=== PATIENT | male | born 1950 | race Caucasian/White ===

== ENCOUNTER → 2024-02-02 | Outpatient (CLI) | payer MEDICARE ==
[2024-02-02 12:25] LABS: African American GFR (CKD) 43 (>60 ml/min/1.73 sqM); Blood Urea Nitrogen 48 mg/dL (9-20); Non-African American GFR(CKD) 37 (>60 ml/min/1.73 sqM)
--- NOTE | 2024-02-13 19:26 | CT ---
EXAMINATION TYPE: CT ChestAbdPelvis w con CT DLP: 1250 mGycm, Automated exposure control for dose reduction was used. DATE OF EXAM: 02/02/2024 1:51 PM COMPARISON: 12/05/2023 CLINICAL INDICATION:Male, 73 years old with history of C34.2 LUNG CANCER; PHH, Lung ca Technique: CT ChestAbdPelvis w con; Multiple axial images were obtained. Two-dimensional coronal and sagittal reconstructions were obtained. Contrast used:80 mL of Isovue 300 with IV Contrast, Oral contrast used: with Oral Contrast Findings: CHEST: LUNGS/ PLEURA: Scattered airspace opacities superimposed on centrilobular emphysema. There remains co nsolidation changes along the right major fissure not significantly changed possibly relating to post obstructive atelectasis versus underlying mass. Paraseptal emphysema changes are present. AIRWAY: Patent and unremarkable. HEART: Size within normal limits. Mild atherosclerosis of the coronary arteries. MEDIASTINUM: No gross evidence of adenopathy. VASCULATURE: No aortic aneurysm. MUSCULOSKELETAL: No acute osseous abnormalities. SOFT TISSUES/LYMPH NODES: Unremarkable. LOWER NECK: No significant findings. ABDOMEN: ABDOMEN LIVER: Unremarkable GALLBLADDER AND BILE DUCTS: Unremarkable. PANCREAS: Unremarkable. SPLEEN: Unremarkable. ADRENAL GLANDS: Unremarkable. KIDNEYS AND URETERS: No evidence of hydronephrosis or renal calculus. The ureters are unremarkable. PELVIS BLADDER: Unremarkable REPRODUCTIVE: Prostate is enlarged in size measuring 4.9 cm in transverse dimension. ABDOMEN & PELVIS STOMACH AND BOWEL: No evidence of bowel obstruction. PERITONEUM: No evidence of pneumoperitoneum or free fluid. VASCULATURE: No evidence of aortic aneurysm. MUSCULOSKELETAL: L3 vertebral body mass with 6 as a large soft tissue component and extends left late ral out of the vertebral body. This area measures at least 53 x 49 mm this is sitting immediately adj acent to or invading into the left psoas muscle. Soft tissue component slightly extending into the le ft neural foramen series 6 image 62. LYMPH NODES: No gross evidence for lymphadenopathy. SOFT TISSUE/ABDOMINAL WALL: Unremarkable IMPRESSION: 1. Enlarging left L3 vertebral body mass with a large soft tissue component which extends left later al out of the vertebral body. This area measures at least 53 x 49 mm this is sitting immediately la cent/invading into the left psoas muscle. Soft tissue extends into the left neural foramen. 2. Persistent scattered diffuse ground glass/airspace opacities. 3. Stable appearance of the right major fissure consolidation with underlying mass suggested. 4. No new or enlarging lymph nodes greater than 1.0 cm short axis suggest new lymphadenopathy.
== END | disposition home or self-care (01) ==
LOC: RADCTMAIN 11:37
PROVIDERS: ATTEND Internal Medicine Hematology & Oncology
DX: C79.51 Secondary malignant neoplasm of bone (principal); C34.2 Malignant neoplasm of middle lobe, bronchus or lung; G89.3 Neoplasm related pain (acute) (chronic); E78.5 Hyperlipidemia, unspecified
CPT/HCPCS: 82565; 84520; 71260; 74177; 36415; Q9967

== ENCOUNTER 2024-03-24 14:00 | Inpatient (IN) | payer MEDICARE ==
--- NOTE | 2024-03-24 14:19 | ED ---
SOB HPI - General Chief Complaint: Shortness of Breath Stated Complaint: low O2 Time Seen by Provider: 03/24/24 14:06 Source: patient, family, RN notes reviewed, old records reviewed Mode of arrival: wheelchair Limitations: no limitations - History of Present Illness Initial Comments: This is a 74-year-old male to the ER for evaluation of their severe hypoxia. Patient has known diagnosis of lung cancer on home O2 but oxygen has been significantly low for a day or so now and significantly worse today. No fevers no current changes in pain or chest pain no other complaints MD Complaint: shortness of breath, cough (Oxygen), anxiety -: days(s) Severity: severe Severity scale (1-10): 10 Consistency: constant Improves With: nothing Worsens With: nothing Known History Of: COPD, asthma - Related Data Home Medications Medication Instructions Recorded Confirmed Adagrasib [Krazati] 600 mg PO BID 03/24/24 03/24/24 Fluticasone/Umeclidin/Vilanter 1 puff INHALATION RT-DAILY 03/24/24 03/24/24 [Treledestini Ellipta 100-62.5-25] Folic Acid 1 mg PO DAILY 03/24/24 03/24/24 Gabapentin [Neurontin] 300 mg PO TID 03/24/24 03/24/24 Megestrol Acetate 625mg/5ml 625 mg PO DAILY 03/24/24 03/25/24 Suspension Metoclopramide [Reglan] 5 mg PO TID 03/24/24 03/24/24 Midodrine HCl [ProAmantine] 5 mg PO TID 03/24/24 03/24/24 Morphine Sulfate ER [Ms Contin] 30 mg PO Q12HR 03/24/24 03/24/24 Pantoprazole Sodium [Protonix] 40 mg PO DAILY 03/24/24 03/24/24 Sennosides [Senokot] 17.2 mg PO BID 03/24/24 03/24/24 Vit C/E/Zn/Coppr/Lutein/Zeaxan 1 cap PO DAILY 03/24/24 03/24/24 [Preservision Areds 2 Softgel] oxyCODONE HCL [OxyIR] 5 mg PO Q6H PRN 03/24/24 03/24/24 polyethylene glycoL 3350 [Miralax] 17 gm PO DAILY PRN 03/24/24 03/24/24 Previous Rx's Medication Instructions Recorded Acetaminophen Tab [Tylenol] 1,000 mg PO Q6HR PRN tab 03/27/24 Amoxic-Pot Clav 875-125Mg 1 tab PO Q12HR 5 Days #10 tab 03/27/24 [Augmentin 875-125] Budesonide-Formot 160-4.5 Mcg 2 puff INHALATION RT-BID each 03/27/24 [Symbicort 160-4.5 Mcg Inhaler] Folic Acid 1 mg PO DAILY tab 03/27/24 Ipratropium-Albuterol Nebulize 3 ml INHALATION RT-QID #120 each 03/27/24 [Duoneb 0.5 mg-3 mg/3 ml Soln] predniSONE 10 mg PO DIRECTED #90 tab 03/27/24 Allergies Allergy/AdvReac Type Severity Reaction Status Date / Time atorvastatin [From Lipitor] Allergy Rapid Verified 03/24/24 16:59 Heart Rate Review of Systems ROS Statement: Those systems with pertinent positive or pertinent negative responses have been documented in the HPI. ROS Other: All systems not noted in ROS Statement are negative. Past Medical History Past Medical History: Cancer Additional Past Medical History / Comment(s): lung ca Past Surgical History: No Surgical Hx Reported General Exam Limitations: no limitations General appearance: alert, in no apparent distress Head exam: Present: atraumatic, normocephalic, normal inspection Eye exam: Present: normal appearance, PERRL, EOMI. Absent: scleral icterus, conjunctival injection, periorbital swelling ENT exam: Present: normal exam, mucous membranes moist Neck exam: Present: normal inspection. Absent: tenderness, meningismus, lymphadenopathy Respiratory exam: Present: normal lung sounds bilaterally. Absent: respiratory distress, wheezes, rales, rhonchi, stridor Cardiovascular Exam: Present: regular rate, normal rhythm, normal heart sounds. Absent: systolic murmur, diastolic murmur, rubs, gallop, clicks GI/Abdominal exam: Present: soft, normal bowel sounds. Absent: distended, tenderness, guarding, rebound, rigid Extremities exam: Present: normal inspection, full ROM, normal capillary refill. Absent: tenderness, pedal edema, joint swelling, calf tenderness Back exam: Present: normal inspection Neurological exam: Present: alert, oriented X3, CN II-XII intact Psychiatric exam: Present: normal affect, normal mood Skin exam: Present: warm, dry, intact, normal color. Absent: rash Course Vital Signs 03/24/24 03/24/24 03/24/24 14:01 14:15 14:26 Temperature 97.6 F Pulse Rate 80 61 Pulse Rate [ Pulse Oximetery ] Respiratory 24 Rate Blood Pressure 102/49 105/68 Blood Pressure [Left Arm] O2 Sat by Pulse 75 L 77 L Oximetry 03/24/24 03/24/24 03/24/24 14:50 14:56 16:00 Temperature 97.8 F Pulse Rate 65 71 Pulse Rate [ Pulse Oximetery ] Respiratory 24 20 Rate Blood Pressure 116/65 Blood Pressure [Left Arm] O2 Sat by Pulse 91 L 89 L Oximetry 03/24/24 03/24/24 03/24/24 17:03 17:41 17:56 Temperature Pulse Rate 67 68 75 Pulse Rate [ Pulse Oximetery ] Respiratory 22 Rate Blood Pressure 106/63 Blood Pressure [Left Arm] O2 Sat by Pulse 89 L Oximetry 03/24/24 03/24/24 03/24/24 18:00 19:00 19:42 Temperature 98.2 F Pulse Rate 75 75 97 Pulse Rate [ Pulse Oximetery ] Respiratory 24 22 Rate Blood Pressure 93/53 114/60 Blood Pressure [Left Arm] O2 Sat by Pulse 93 L 95 94 L Oximetry 03/24/24 03/24/24 03/24/24 19:52 20:13 22:20 Temperature Pulse Rate 88 78 75 Pulse Rate [ Pulse Oximetery ] Respiratory 19 18 Rate Blood Pressure 104/51 121/79 Blood Pressure [Left Arm] O2 Sat by Pulse 97 92 L Oximetry 03/25/24 03/25/24 03/25/24 00:46 01:02 04:14 Temperature Pulse Rate 69 64 71 Pulse Rate [ Pulse Oximetery ] Respiratory Rate Blood Pressure Blood Pressure [Left Arm] O2 Sat by Pulse Oximetry 03/25/24 03/25/24 03/25/24 04:25 06:03 07:40 Temperature Pulse Rate 70 78 65 Pulse Rate [ Pulse Oximetery ] Respiratory 20 18 Rate Blood Pressure 121/67 120/63 Blood Pressure [Left Arm] O2 Sat by Pulse 92 L 90 L Oximetry 03/25/24 03/25/24 03/25/24 08:44 08:45 09:00 Temperature Pulse Rate 71 73 Pulse Rate [ Pulse Oximetery ] Respiratory 20 Rate Blood Pressure 117/81 Blood Pressure [Left Arm] O2 Sat by Pulse 90 L 89 L Oximetry 03/25/24 03/25/24 03/25/24 09:30 11:17 11:30 Temperature Pulse Rate 70 86 92 Pulse Rate [ Pulse Oximetery ] Respiratory 20 Rate Blood Pressure 140/68 Blood Pressure [Left Arm] O2 Sat by Pulse 90 L Oximetry 03/25/24 03/25/24 03/25/24 13:08 15:28 15:37 Temperature Pulse Rate 83 92 84 Pulse Rate [ Pulse Oximetery ] Respiratory 20 Rate Blood Pressure 130/66 Blood Pressure [Left Arm] O2 Sat by Pulse 94 L Oximetry 03/25/24 03/25/24 03/25/24 18:56 19:52 20:05 Temperature Pulse Rate 86 76 Pulse Rate [ 75 Pulse Oximetery ] Respiratory 20 20 18 Rate Blood Pressure 128/74 Blood Pressure 122/76 [Left Arm] O2 Sat by Pulse 94 L 90 L Oximetry 03/25/24 03/25/24 20:09 21:00 Temperature 98.2 F Pulse Rate 76 Pulse Rate [ 83 Pulse Oximetery ] Respiratory 18 18 Rate Blood Pressure Blood Pressure 116/61 [Left Arm] O2 Sat by Pulse 93 L 91 L Oximetry - Reevaluation(s) Reevaluation #1: 03/24/24 14:38 Medical records reviewed Reevaluation #2: 03/24/24 17:17 Showing symptomatic improvement with supplemental O2 and breathing treatments Reevaluation #3: 03/24/24 17:17 Patient informed of results questions answered Reevaluation #4: Was pt. sent in by a medical professional or institution (, PA, SENIOR TAX ACCOUNTANT, urgent care, hospital, or fpc...) When possible be specific @ -no Did you speak to anyone other than the patient for history (EMS, parent, family, police, friend...)? What history was obtained from this source @ -no Did you review nursing and triage notes (agree or disagree)? Why? @ -agree Are old charts reviewed (outside hosp., previous admission, EMS record, old EKG, old radiological studies, urgent care reports/EKG's, fpc records)? Report findings @ -yes Differential Diagnosis (chest pain, altered mental status, abdominal pain women, abdominal pain men, vaginal bleeding, weakness, fever, dyspnea, syncope, headache, dizziness, GI bleed, back pain, seizure, CVA, palpatations, mental health, musculoskeletal)? @ -prior EKG interpreted by me (3pts min.). @ -yes X-rays interpreted by me (1pt min.). @ -yes with significant edema and CHF CT interpreted by me (1pt min.). @ -yes with significant edema and CHF U/S interpreted by me (1pt. min.). @ -no What testing was considered but not performed or refused? (CT, X-rays, U/S, labs)? Why? @ -none What meds were considered but not given or refused? Why? @ -none Did you discuss the management of the patient with other professionals (professionals i.e. , PA, SENIOR TAX ACCOUNTANT, lab, RT, psych nurse, social worker masters, inspector timers, teacher, cra officer, case worker)? Give summary @ -no Was smoking cessation discussed for >3mins.? @ -no Was critical care preformed (if so, how long)? @ -yes31 Were there social determinants of health that impacted care today? How? (Homelessness, low income, unemployed, alcoholism, drug addiction, transportation, low edu. Level, literacy, decrease access to med. care, usp, rehab)? @ -none Was there de-escalation of care discussed even if they declined (Discuss DNR or withdrawal of care, Hospice)? DNR status @ -no What co-morbidities impacted this encounter? (DM, HTN, Smoking, COPD, CAD, Cancer, CVA, ARF, Chemo, Hep., AIDS, mental health diagnosis, sleep apnea, morbid obesity)? @ -none Was patient admitted / discharged? Hospital course, mention meds given and route, prescriptions, significant lab abnormalities, going to OR and other pertinent info. @ - 74 male will be admitted for severe hypoxia, improved with supplemental O2 Admitted Undiagnosed new problem with uncertain prognosis? @ -no Drug Therapy requiring intensive monitoring for toxicity (Heparin, Nitro, Insulin, Cardizem)? @ -no Were any procedures done? @ -no Diagnosis/symptom? @ -Respiratory failure and hypoxia with effusion Acute, or Chronic, or Acute on Chronic? @ -Acute Uncomplicated (without systemic symptoms) or Complicated (systemic symptoms)? @ -Complicated Side effects of treatment? @ -no Exacerbation, Progression, or Severe Exacerbation? @ -exacerbation Poses a threat to life or bodily function? How? (Chest pain, USA, DC, pneumonia, PE, COPD, DKA, ARF, appy, cholecystitis, CVA, Diverticulitis, Homicidal, Suicidal, threat to staff... and all critical care pts) @ -yes respiratory failure Reevaluation #5: Differential Dyspnea: Coronary syndrome, arrhythmia, tamponade, asthma, COPD, pulmonary embolism, pneumonia, pneumothorax, pulmonary effusion, anaphylaxis, diabetic ketoacidosis, flailed chest, pulmonary contusion, diaphragmatic rupture, anemia, neuromuscular, this is not meant to be an all-inclusive list. - Consultations Consultation #1: Speak with Dr. Sánchez before patient arrival regarding patient's hypoxia Consultation #2: Spoke with Dr. Herrera who is okay to admit this patient Medical Decision Making - Medical Decision Making 74 male will be admitted for severe hypoxia, improved with supplemental O2 - Lab Data Result diagrams: 03/25/24 06:33 03/27/24 06:52 Lab Results 03/24/24 03/24/24 03/24/24 Range/Units 14:18 14:18 14:18 WBC 10.6 (3.8-10.6) k/uL RBC 5.10 (4.30-5.90) m/uL Hgb 15.4 (13.0-17.5) gm/dL Hct 47.5 (39.0-53.0) % MCV 93.1 (80.0-100.0) fL MCH 30.2 (25.0-35.0) pg MCHC 32.4 (31.0-37.0) g/dL RDW 14.7 (11.5-15.5) % Plt Count 226 (150-450) k/uL MPV 7.6 Neutrophils % 79 % Lymphocytes % 8 % Monocytes % 6 % Eosinophils % 4 % Basophils % 1 % Neutrophils # 8.3 H (1.3-7.7) k/uL Lymphocytes # 0.9 L (1.0-4.8) k/uL Monocytes # 0.6 (0-1.0) k/uL Eosinophils # 0.4 (0-0.7) k/uL Basophils # 0.1 (0-0.2) k/uL PT 10.5 (10.0-12.5) sec INR 0.9 (<1.2) APTT 19.6 L (22.0-30.0) sec D-Dimer 1.57 H (<0.60) mg/L FEU Sodium 135 L (137-145) mmol/L Potassium 5.1 (3.5-5.1) mmol/L Chloride 109 H (98-107) mmol/L Carbon Dioxide 19 L (22-30) mmol/L Anion Gap 7 mmol/L BUN 37 H (9-20) mg/dL Creatinine 1.36 H (0.66-1.25) mg/dL Est GFR (CKD-EPI)AfAm 60 (>60 ml/min/1.73 sqM) Est GFR (CKD-EPI)NonAf 52 (>60 ml/min/1.73 sqM) Glucose 103 H (74-99) mg/dL Calcium 8.5 (8.4-10.2) mg/dL Magnesium 2.2 (1.6-2.3) mg/dL Total Bilirubin 0.6 (0.2-1.3) mg/dL AST 23 (17-59) U/L ALT 19 (4-49) U/L Alkaline Phosphatase 63 (38-126) U/L Troponin I (0.000-0.034) ng/mL NT-Pro-B Natriuret Pep 1100 pg/mL Total Protein 6.7 (6.3-8.2) g/dL Albumin 3.7 (3.5-5.0) g/dL 03/24/24 Range/Units 14:18 WBC (3.8-10.6) k/uL RBC (4.30-5.90) m/uL Hgb (13.0-17.5) gm/dL Hct (39.0-53.0) % MCV (80.0-100.0) fL MCH (25.0-35.0) pg MCHC (31.0-37.0) g/dL RDW (11.5-15.5) % Plt Count (150-450) k/uL MPV Neutrophils % % Lymphocytes % % Monocytes % % Eosinophils % % Basophils % % Neutrophils # (1.3-7.7) k/uL Lymphocytes # (1.0-4.8) k/uL Monocytes # (0-1.0) k/uL Eosinophils # (0-0.7) k/uL Basophils # (0-0.2) k/uL PT (10.0-12.5) sec INR (<1.2) APTT (22.0-30.0) sec D-Dimer (<0.60) mg/L FEU Sodium (137-145) mmol/L Potassium (3.5-5.1) mmol/L Chloride (98-107) mmol/L Carbon Dioxide (22-30) mmol/L Anion Gap mmol/L BUN (9-20) mg/dL Creatinine (0.66-1.25) mg/dL Est GFR (CKD-EPI)AfAm (>60 ml/min/1.73 sqM) Est GFR (CKD-EPI)NonAf (>60 ml/min/1.73 sqM) Glucose (74-99) mg/dL Calcium (8.4-10.2) mg/dL Magnesium (1.6-2.3) mg/dL Total Bilirubin (0.2-1.3) mg/dL AST (17-59) U/L ALT (4-49) U/L Alkaline Phosphatase (38-126) U/L Troponin I <0.012 (0.000-0.034) ng/mL NT-Pro-B Natriuret Pep pg/mL Total Protein (6.3-8.2) g/dL Albumin (3.5-5.0) g/dL - EKG Data -: EKG Interpreted by Me (EKG is sinus 67 MS 182 QRS 88 QTc 389) - Radiology Data Radiology results: report reviewed (Past, CTA negative for PE x-ray shows significant effusions increasing), image reviewed Critical Care Time Critical Care Time: Yes Total Critical Care Time: 31 Disposition Clinical Impression: Acute exacerbation of chronic obstructive pulmonary disease, Acute respiratory failure, Hypoxia Disposition: ADMITTED IP TO THIS HOSP Condition: Stable Is patient prescribed a controlled substance at d/c from ED?: No Time of Disposition: 17:00
[2024-03-24] MEDS: IPRATROPIUM-ALBUTEROL 3 ML NEB INHALATION STA ×2 (14:26→17:41)
[2024-03-24] MEDS: SODIUM CHLORIDE 0.9% 1,000 ML IV STA (14:27)
[2024-03-24] MEDS: methylPREDNISolone SOD SUCCI 125 MG/2 ML VIAL IV STA (14:32)
[2024-03-24 15:03] LABS: ALT 19 U/L (4-49); AST 23 U/L (17-59); African American GFR (CKD) 60 (>60 ml/min/1.73 sqM); Albumin 3.7 g/dL (3.5-5.0); Alkaline Phosphatase 63 U/L (38-126); Anion Gap 7 mmol/L; Blood Urea Nitrogen 37 mg/dL (9-20); Calcium 8.5 mg/dL (8.4-10.2); Carbon Dioxide 19 mmol/L (22-30); Chloride 109 mmol/L (98-107); Glucose 103 mg/dL (74-99); Magnesium 2.2 mg/dL (1.6-2.3); Non-African American GFR(CKD) 52 (>60 ml/min/1.73 sqM); Potassium 5.1 mmol/L (3.5-5.1); Sodium 135 mmol/L (137-145); Total Bilirubin 0.6 mg/dL (0.2-1.3); Total Protein 6.7 g/dL (6.3-8.2)
--- NOTE | 2024-03-24 15:09 | XR ---
EXAMINATION TYPE: XR chest 1V portable DATE OF EXAM: 03/24/2024 3:02 PM CLINICAL INDICATION:Male, 74 years old with history of sob; COMPARISON: CT 02/02/2024. TECHNIQUE: XR chest 1V portable Frontal view of the chest. FINDINGS: Lungs/Pleura: No demonstration bilateral airspace opacities. There is no evidence of pleural effusion , focal consolidation, or pneumothorax. Pulmonary vascularity: Unremarkable. Heart/mediastinum: Cardiomediastinal silhouette is unremarkable. Musculoskeletal: No acute osseous pathology. IMPRESSION: Demonstration of airspace disease from prior CT 02/02/2024.
[2024-03-24 15:11] LABS: NT-Pro-B-Type Natriuretic Pept 1100 pg/mL
[2024-03-24 15:14] LABS: INR 0.9 (<1.2); Prothrombin Time 10.5 sec (10.0-12.5)
[2024-03-24 15:30] LABS: Partial Thromboplastin Time 19.6 sec (22.0-30.0)
[2024-03-24 15:51] LABS: Basophils # (A) 0.1 k/uL (0-0.2); Basophils % (A) 1 %; Eosinophils # (A) 0.4 k/uL (0-0.7); Eosinophils % (A) 4 %; HCT 47.5 % (39.0-53.0); HGB 15.4 gm/dL (13.0-17.5); Lymphocytes # (A) 0.9 k/uL (1.0-4.8); Lymphocytes % (A) 8 %; MCH 30.2 pg (25.0-35.0); MCHC 32.4 g/dL (31.0-37.0); MCV 93.1 fL (80.0-100.0); Mean Platelet Volume 7.6; Monocytes # (A) 0.6 k/uL (0-1.0); Monocytes % (A) 6 %; Neutrophils # (A) 8.3 k/uL (1.3-7.7); Neutrophils % (A) 79 %; Platelet Count 226 k/uL (150-450); RDW 14.7 % (11.5-15.5); WBC 10.6 k/uL (3.8-10.6)
[2024-03-24] MEDS: GABAPENTIN 300 MG CAP PO STA (17:08)
[2024-03-24] MEDS: HYDROmorphone 1 MG/ML 1 ML SYRINGE IVP STA (17:10)
[2024-03-24] MEDS ORDERED: NALOXONE 0.4 MG/ML 1 ML VIAL IV PRN (17:15)
--- NOTE | 2024-03-24 17:30 | CT ---
EXAMINATION TYPE: CT angio chest CT DLP: 287.3 mGycm, Automated exposure control for dose reduction was used. DATE OF EXAM: 03/24/2024 4:32 PM COMPARISON: 02/02/2024, 12/05/2023 CLINICAL INDICATION:Male, 74 years old with history of pe; Hx of lung ca. SOB. High d-dimer. TECHNIQUE/CONTRAST: CTA scan of the thorax is performed with IV Contrast, patient injected with 80 mL of Isovue 370, MIP images are created and reviewed these are created on a separate workstation.. FINDINGS: Pulmonary Artery: There is no evidence for a filling defect within the pulmonary vasculature to sugge st acute pulmonary embolism. The pulmonary artery is of normal size. Lungs/Pleura: Multifocal airspace opacities worse in the posterior aspects of the lower lungs. Scatte red groundglass opacity also present. Right perifissural consolidation changes and/or prior mass is n ot significantly changed given differences in technique.r this measures roughly 4.7 x 2.7 cm No evide nce for pneumothorax or pleural effusion. Airway: Large airways are patent. Heart: Heart is within normal limits for size. Vasculature: No evidence of aortic aneurysm. Mediastinum: No gross evidence of adenopathy. Musculoskeletal: No acute osseous abnormalities Soft Tissues/lymph nodes: Unremarkable. Lower neck: No significant findings. Upper Abdomen: Partially visualized osseous destructive changes do extend into the left psoas muscle as seen on prior. IMPRESSION: 1. No evidence of pulmonary embolism. 2. Worsening airspace consolidation changes on a background of interstitial lung disease when compare d to 02/02/2024. 3. Partially visualized left psoas muscle mass that extends into the osseous structures.
[2024-03-24] MEDS: ALBUTEROL NEBULIZED 2.5 MG/3 ML INHALATION SCH (19:42)
[2024-03-24] MEDS: [UNRECOGNIZED DRUG - OTHER] PO SCH (22:28)
[2024-03-24] MEDS: HYDROmorphone 1 MG/ML 1 ML SYRINGE IVP PRN (22:30)
[2024-03-25] MEDS: ACETAMINOPHEN TAB 500 MG TAB PO PRN (06:16)
[2024-03-25] MEDS: PANTOPRAZOLE 40 MG/10 ML VIAL IV SCH (07:37)
[2024-03-25] MEDS: ONDANSETRON 4 MG/2 ML VIAL IVP PRN (07:44)
[2024-03-25] MEDS ORDERED: polyethylene glycoL 3350 17 GM POWD.PACK PO PRN (08:28)
[2024-03-25] MEDS ORDERED: IPRATROPIUM-ALBUTEROL 3 ML NEB INHALATION PRN (08:40)
[2024-03-25] MEDS ORDERED: PANTOPRAZOLE 40 MG TABLET PO SCH (09:00)
[2024-03-25] MEDS: MORPHINE SULFATE ER 30 MG TABLET PO SCH (09:01)
[2024-03-25] MEDS: MIDODRINE 5 MG TAB PO SCH (09:01)
[2024-03-25] MEDS: METOCLOPRAMIDE 5 MG TAB PO SCH (09:01)
[2024-03-25] MEDS: FOLIC ACID 1 MG TAB PO SCH (09:01)
[2024-03-25] MEDS: GABAPENTIN 300 MG CAP PO SCH (09:01)
[2024-03-25] MEDS: methylPREDNISolone SOD SUCCI 125 MG/2 ML VIAL IV SCH (09:02)
[2024-03-25] MEDS: SENNOSIDES 8.6 MG TAB PO SCH (09:02)
[2024-03-25] MEDS: AZITHROMYCIN 250 MG in SODIUM CHLORIDE 0.9% 250 ML IVPB SCH (09:07)
[2024-03-25] MEDS: VIT A,C & E-LUTEIN-MINERALS 1 EACH TAB PO SCH (09:53)
[2024-03-25 10:44] LABS: Basophils # (A) 0.02 X 10*3/uL (0.00-0.10); Basophils % (A) 0.2 %; Eosinophils # (A) 0.01 X 10*3/uL (0.04-0.35); Eosinophils % (A) 0.1 %; HCT 40.8 % (39.6-50.0); HGB 13.5 g/dL (13.0-17.0); Lymphocytes # (A) 0.43 X 10*3/uL (0.90-5.00); MCH 29.9 pg (27.0-32.0); MCHC 33.1 g/dL (32.0-37.0); MCV 90.3 FL (80.0-97.0); Monocytes # (A) 0.29 X 10*3/uL (0.20-1.00); Monocytes % (A) 3.4 %; NRBC Per 100 WBC 0 X 10*3/uL (0.00-0.01); Neutrophils # (A) 7.64 X 10*3/uL (1.80-7.70); Neutrophils % (A) 89.2 %; Platelet Count 182 X 10*3/uL (140-440); RBC 4.52 X 10*6/uL (4.40-5.60); WBC 8.57 X 10*3/uL (4.50-10.00)
[2024-03-25 10:53] LABS: ALT 20 U/L (10-49); AST 16 U/L (14-35); Albumin 3.8 g/dL (3.8-4.9); Albumin/Globulin Ratio 1.58 Ratio (1.60-3.17); Alkaline Phosphatase 61 U/L (41-126); BUN/Creat Ratio 25.67 Ratio (12.00-20.00); Blood Urea Nitrogen 30.8 mg/dL (9.0-27.0); Calcium 7.9 mg/dL (8.7-10.3); Carbon Dioxide 17.5 mmol/L (21.6-31.8); Chloride 105 mmol/L (96-109); Globulin 2.4 g/dL (1.6-3.3); Glucose 132 mg/dL (70-110); Sodium 137 mmol/L (135-145); Total Bilirubin 0.3 mg/dL (0.3-1.2); Total Protein 6.2 g/dL (6.2-8.2)
[2024-03-25] MEDS: MEGESTROL 400 MG/10 ML CUP PO SCH (11:02)
[2024-03-25] MEDS: IPRATROPIUM-ALBUTEROL 3 ML NEB INHALATION SCH (11:17)
--- NOTE | 2024-03-25 13:38 | P.CNPUL ---
History of Present Illness Consult date: 03/25/24 Requesting physician: Davidson Herrera Reason for consult: dyspnea, abnormal CXR/CT Chief complaint: Shortness of breath History of present illness: This is a 74-year-old male patient with a known history of chronic obstructive pulmonary disease, oxygen dependent, lung cancer and is been followed mainly in [facility]. He has been on Krazati for approximately 1 year now. Presented here to the emergency room yesterday with increasing shortness of breath over the past several days and low oxygen readings. Chest x-ray reveals no evidence of pleural effusion, focal consolidation or pneumothorax. CT angiogram revealed no evidence of pulmonary embolism. There is worsening airspace consolidation changes on the background of interstitial lung disease compared to February 02, 2024. There is a partially visualized left psoas muscle mass that extends into the osseous structures. White count 8.5. Hemoglobin 13.5. Platelets 182. Sodium 137. Potassium 5.0. Bicarb 18. BUN 31. Creatinine 1.2. Glucose 132. Viral screen is negative. He is seen today in consultation in the emergency department. He is sitting up on a stretcher. Awake and alert. He is dyspneic with conversation. He is requiring 12 L high flow nasal cannula to maintain O2 saturations in the 90s. He is somewhat of a poor historian. No family at the bedside. He has been initiated on DuoNeb inhalations, Symbicort, Solu-Medrol. Antibiotics in the form of ceftriaxone and azithromycin. Review of Systems REVIEW OF SYSTEMS: CONSTITUTIONAL: Denies any recent significant weight loss or weight gain. EYES: Denies change in vision. EARS, NOSE, MOUTH, THROAT: Denies headaches, denies sore throat. CARDIOVASCULAR: Denies chest pain, palpitations or syncopal episodes. RESPIRATORY: Positive for shortness of breath, cough, congestion no hemoptysis. GASTROINTESTINAL: Denies change in appetite, denies abdominal pain GENITOURINARY: Denies hematuria, denies infections. MUSKULOSKELETAL: Denies pain, denies swelling. INTEGUMENTARY: Denies rash, denies eczema. NEUROLOGICAL: Denies recent memory loss, no recent seizure activity. PSYCHIATRIC: Denies anxiety, denies depression. HEMATOLOGIC/LYMPHATIC: Denies anemia, denies enlarged lymph nodes. Past Medical History Past Medical History: Cancer Additional Past Medical History / Comment(s): lung ca Past Surgical History: No Surgical Hx Reported Medications and Allergies Home Medications Medication Instructions Recorded Confirmed Type Adagrasib [Krazati] 600 mg PO BID 03/24/24 03/24/24 History Fluticasone/Umeclidin/Vilanter 1 puff INHALATION RT-DAILY 03/24/24 03/24/24 History [Trelegy Ellipta 100-62.5-25] Folic Acid 1 mg PO DAILY 03/24/24 03/24/24 History Gabapentin [Neurontin] 300 mg PO TID 03/24/24 03/24/24 History Megestrol Acetate 625mg/5ml 625 mg PO DAILY 03/24/24 03/25/24 History Suspension Metoclopramide [Reglan] 5 mg PO TID 03/24/24 03/24/24 History Midodrine HCl [ProAmantine] 5 mg PO TID 03/24/24 03/24/24 History Morphine Sulfate ER [Ms Contin] 30 mg PO Q12HR 03/24/24 03/24/24 History Pantoprazole Sodium [Protonix] 40 mg PO DAILY 03/24/24 03/24/24 History Sennosides [Senokot] 17.2 mg PO BID 03/24/24 03/24/24 History Vit C/E/Zn/Coppr/Lutein/Zeaxan 1 cap PO DAILY 03/24/24 03/24/24 History [Preservision Areds 2 Softgel] oxyCODONE HCL [OxyIR] 5 mg PO Q6H PRN 03/24/24 03/24/24 History polyethylene glycoL 3350 [Miralax] 17 gm PO DAILY PRN 03/24/24 03/24/24 History Allergies Allergy/AdvReac Type Severity Reaction Status Date / Time atorvastatin [From Lipitor] Allergy Rapid Verified 03/24/24 16:59 Heart Rate Physical Exam Vitals: Vital Signs Temp Pulse Resp BP Pulse Ox 03/25/24 13:08 83 20 130/66 94 L 03/25/24 11:30 92 03/25/24 11:17 86 03/25/24 09:30 70 20 140/68 90 L 03/25/24 09:00 73 20 117/81 89 L 03/25/24 08:45 90 L 03/25/24 08:44 71 03/25/24 07:40 65 18 120/63 90 L 03/25/24 06:03 78 20 121/67 92 L 03/25/24 04:25 70 03/25/24 04:14 71 03/25/24 01:02 64 03/25/24 00:46 69 03/24/24 22:20 75 18 121/79 92 L 03/24/24 20:13 78 19 104/51 97 03/24/24 19:52 88 03/24/24 19:42 97 94 L 03/24/24 19:00 98.2 F 75 22 114/60 95 03/24/24 18:00 75 24 93/53 93 L 03/24/24 17:56 75 03/24/24 17:41 68 03/24/24 17:03 67 22 106/63 89 L 03/24/24 16:00 97.8 F 71 20 116/65 89 L 03/24/24 14:56 24 91 L 03/24/24 14:50 65 03/24/24 14:26 61 03/24/24 14:15 105/68 77 L 03/24/24 14:01 97.6 F 80 24 102/49 75 L GENERAL EXAM: Alert, thin, 74-year-old male, poor historian, on 12 L high flow nasal cannula, fairly comfortable in no apparent distress. HEAD: Normocephalic. EYES: Normal reaction of pupils, equal size. NOSE: Clear with pink turbinates. THROAT: No erythema or exudates. NECK: No masses, no JVD. CHEST: No chest wall deformity. LUNGS: Equal air entry with bilateral scattered rhonchi. CVS: S1 and S2 normal with no audible murmur, regular rhythm. ABDOMEN: No hepatosplenomegaly, normal bowel sounds, no guarding or rigidity. SPINE: No scoliosis or deformity SKIN: No rashes CENTRAL NERVOUS SYSTEM: No focal deficits, tone is normal in all 4 extremities. EXTREMITIES: There is no peripheral edema. No clubbing, no cyanosis. Peripheral pulses are intact. Results - Laboratory Findings CBC and BMP: 03/25/24 06:33 03/25/24 06:33 PT/INR, D-dimer PT 10.5 sec (10.0-12.5) 03/24/24 14:18 INR 0.9 (<1.2) 03/24/24 14:18 D-Dimer 1.57 mg/L FEU (<0.60) H 03/24/24 14:18 Abnormal lab findings: Abnormal Labs 03/24/24 03/24/24 03/24/24 14:18 14:18 14:18 RDW MPV Immature Gran # Neutrophils # 8.3 H Lymphocytes # 0.9 L Eosinophils # APTT 19.6 L D-Dimer 1.57 H Sodium 135 L Chloride 109 H Carbon Dioxide 19 L Anion Gap BUN 37 H Creatinine 1.36 H BUN/Creatinine Ratio Glucose 103 H Calcium Albumin/Globulin Ratio 03/25/24 03/25/24 06:33 06:33 RDW 15.0 H MPV 9.0 L Immature Gran # 0.18 H Neutrophils # Lymphocytes # 0.43 L Eosinophils # 0.01 L APTT D-Dimer Sodium Chloride Carbon Dioxide 17.5 L Anion Gap 14.50 H BUN 30.8 H Creatinine BUN/Creatinine Ratio 25.67 H Glucose 132 H Calcium 7.9 L Albumin/Globulin Ratio 1.58 L - Diagnostic Findings Chest x-ray: image reviewed CT scan - chest: image reviewed Assessment and Plan Assessment: Acute on chronic hypoxic respiratory failure secondary to underlying lung cancer, possible pneumonia, progressive ILD. Pulmonary embolism ruled out. There is worsening airspace consolidation changes on the background of interstitial lung disease compared to 02/02/2024. Right perifissural consolidation changes and/or prior mass is not significantly changed given differences in technique. This measures roughly 4.7 x 2.7 cm. No evidence of pneumothorax or pleural effusion. There is a partially visualized osseous destructive changes do extend to the left psoas muscle as seen previously History of lung cancer. He has been on Krazati for approximately 1 year. Mainly being treated in [facility] History of COPD Poor historian Plan: The patient was seen and evaluated Chest x-ray, CT scan, labs and medications reviewed Continue DuoNeb inhalations, Symbicort, Solu-Medrol Continue ceftriaxone and azithromycin Check a procalcitonin Medical oncology consult We will continue to follow and make further recommendations based on his clinical status I have personally seen and examined the patient, performed the documentation and the assessment and plan as written. Number of minutes spent on the visit: 20.
[2024-03-25] MEDS ORDERED: DEXTROSE 50% SYRINGE 50 ML IVP PRN ×2 (16:38)
--- NOTE | 2024-03-25 16:47 | P.HPIM ---
History of Present Illness H&P Date: 03/25/24 Chief Complaint: Worsening hypoxia, shortness of breath This is a 74-year-old gentleman with past medical history significant for lung CA, on Krazati over the last year-follows with oncologist in [facility], chronic hypoxic respiratory failure, COPD, presented to the ER with progressive shortness of breath over the last 3 to 5 days, accompanied by inability to maintain O2 sats higher than the mid 80s. Reports his oxygen only goes up to 5 L. Denies cough, congestion. Denies chest pain, palpitations. Vague historian. chest x-ray reported no bilateral airspace opacities, no evidence of pleural effusion, focal consolidation or pneumothorax, pulmonary vascularity u nremarkable.D-dimer elevated, 1.57 .chest CTA reported no evidence of pulmonary embolism, worsening airspace consolidation changes on a background of interstitial lung disease compared to 02/02/2024, partially visualized left psoas muscle mass that extends into the osseous structures, as seen on prior. Eating [employer] this morning without difficulty, conversational dyspnea, currently requiring 11 L high flow nasal cannula to maintain O2 sats in the low 90s. Afebrile, normal WBC, hemoglobin 13.5, platelets 182, sodium 137, potassium 5 bicarb 17.5, BUN 37, 30.8, creatinine 1.36, 1.2 magnesium 2.2, proBNP 1100. Viral studies negative. Nebulized bronchodilators, Symbicort, IV steroids, ceftriaxone and azithromycin initiated in the ER. Review of Systems ROS Statement: Those systems with pertinent positive or pertinent negative responses have been documented in the HPI. ROS Other: All systems not noted in ROS Statement are negative. Past Medical History Past Medical History: Cancer Additional Past Medical History / Comment(s): lung ca Past Surgical History: No Surgical Hx Reported Medications and Allergies Home Medications Medication Instructions Recorded Confirmed Type Adagrasib [Krazati] 600 mg PO BID 03/24/24 03/24/24 History Fluticasone/Umeclidin/Vilanter 1 puff INHALATION RT-DAILY 03/24/24 03/24/24 History [Trelegy Ellipta 100-62.5-25] Folic Acid 1 mg PO DAILY 03/24/24 03/24/24 History Gabapentin [Neurontin] 300 mg PO TID 03/24/24 03/24/24 History Megestrol Acetate 625mg/5ml 625 mg PO DAILY 03/24/24 03/25/24 History Suspension Metoclopramide [Reglan] 5 mg PO TID 03/24/24 03/24/24 History Midodrine HCl [ProAmantine] 5 mg PO TID 03/24/24 03/24/24 History Morphine Sulfate ER [Ms Contin] 30 mg PO Q12HR 03/24/24 03/24/24 History Pantoprazole Sodium [Protonix] 40 mg PO DAILY 03/24/24 03/24/24 History Sennosides [Senokot] 17.2 mg PO BID 03/24/24 03/24/24 History Vit C/E/Zn/Coppr/Lutein/Zeaxan 1 cap PO DAILY 03/24/24 03/24/24 History [Preservision Areds 2 Softgel] oxyCODONE HCL [OxyIR] 5 mg PO Q6H PRN 03/24/24 03/24/24 History polyethylene glycoL 3350 [Miralax] 17 gm PO DAILY PRN 03/24/24 03/24/24 History Allergies Allergy/AdvReac Type Severity Reaction Status Date / Time atorvastatin [From Lipitor] Allergy Rapid Verified 03/24/24 16:59 Heart Rate Physical Exam Vitals: Vital Signs Temp Pulse Resp BP Pulse Ox 03/25/24 15:37 84 03/25/24 15:28 92 03/25/24 13:08 83 20 130/66 94 L 03/25/24 11:30 92 03/25/24 11:17 86 03/25/24 09:30 70 20 140/68 90 L 03/25/24 09:00 73 20 117/81 89 L 03/25/24 08:45 90 L 03/25/24 08:44 71 03/25/24 07:40 65 18 120/63 90 L 03/25/24 06:03 78 20 121/67 92 L 03/25/24 04:25 70 03/25/24 04:14 71 03/25/24 01:02 64 03/25/24 00:46 69 03/24/24 22:20 75 18 121/79 92 L 03/24/24 20:13 78 19 104/51 97 03/24/24 19:52 88 03/24/24 19:42 97 94 L 03/24/24 19:00 98.2 F 75 22 114/60 95 03/24/24 18:00 75 24 93/53 93 L 03/24/24 17:56 75 03/24/24 17:41 68 03/24/24 17:03 67 22 106/63 89 L 03/24/24 16:00 97.8 F 71 20 116/65 89 L PHYSICAL EXAM: VITAL SIGNS: [As above] GENERAL: Alert and oriented x 3, thin elderly male, BMI 20.3, sitting up on stretcher, on 11 L high flow NC, eating, appears comfortable. HEENT: Normocephalic, conjunctivae normal. eyes normal. No erythema or exudates . NECK: Supple, no JVD. No thyroid enlargement. No LNs CARDIOVASCULAR: S1, S2 regular.. No murmur RESPIRATION: Equal air entry breath, rhonchi scattered throughout, bilateral bases diminished ABDOMEN: Soft, nondistended, nontender . No guarding. no masses palpable. No ascites, No hepatosplenomegaly.Bowel sounds heard. LEGS: No edema. no swelling NERVOUS SYSTEM: Cranial N 2-12 grossly normal.No focal deficits. Strength and sensation grossly intact. Skin: Warm and dry, no rash Results CBC & Chem 7: 03/25/24 06:33 03/25/24 06:33 Labs: Abnormal Lab Results - Last 24 Hours (Table) 03/25/24 03/25/24 Range/Units 06:33 06:33 RDW 15.0 H (11.5-14.5) % MPV 9.0 L (9.5-12.2) FL Immature Gran # 0.18 H (0.00-0.04) X 10*3/uL Lymphocytes # 0.43 L (0.90-5.00) X 10*3/uL Eosinophils # 0.01 L (0.04-0.35) X 10*3/uL Carbon Dioxide 17.5 L (21.6-31.8) mmol/L Anion Gap 14.50 H (4.00-12.00) mmol/L BUN 30.8 H (9.0-27.0) mg/dL BUN/Creatinine Ratio 25.67 H (12.00-20.00) Ratio Glucose 132 H (70-110) mg/dL Calcium 7.9 L (8.7-10.3) mg/dL Albumin/Globulin Ratio 1.58 L (1.60-3.17) Ratio Assessment and Plan Assessment: Acute on chronic hypoxic respiratory failure secondary to underlying lung cancer, on Krazati for the last year. CT reports worsening airspace consolidation changes on a background of interstitial lung disease compared to 02/02/2024. COPD, history of partially visualized left psoas muscle mass that extends into the osseous structures, as seen on prior, Reported per CT. Plan: Continue on current medication resume ,monitoring and symptomatic warren atment. Aggressive pulmonary toileting, nebulized bronchodilators, LABA,IV steroids, antibiotics. Oncology and pulmonary consults in place, recommendations noted. Blood cultures, Legionella ,procalcitonin pending. PPI for GI prophylaxis. The impression and plan of care has been dictated as directed. : I performed a history and examination of this patient, discussed the same with the dictator. I agree with the dictator's note ,documented as a scribe. Any additional findings or plans will be noted.
[2024-03-25 17:05] LABS: Glucose,Whole Blood 184 mg/dL (70-110)
[2024-03-25] MEDS: INSULIN ASPART (NovoLOG) 100 UNIT/ML VIAL SQ SCH (17:34)
[2024-03-25 19:59] LABS: Glucose,Whole Blood 150 mg/dL (70-110)
[2024-03-26 06:09] LABS: Glucose,Whole Blood 146 mg/dL (70-110)
--- NOTE | 2024-03-26 07:10 | P.CONS ---
History of Present Illness - Reason for Consult Consult date: 03/25/24 hx lung cancer Requesting physician: Randolph Chavarria - Chief Complaint SOB - History of Present Illness Patient is a 74 year old male with a significant history of lung cancer. He is a patient of Dr. Avila. The patient had developed some shortness of breath and cough, around fall, which had been slowly progressive. Chest x-ray in 09/08 showed large consolidative infiltrate in the right middle lobe. CT chest in 10/10 confirmed masslike consolidation in this area, with additional micro nodular pattern in the right upper lobe, and micronodules in the right lower and middle lobe. He was seen in early 2022 by pulmonology in [place], and had a bronchoscopy which was negative. There was clinical suspicion of blastomycosis and the patient was treated with antifungals and prednisone. However his symptoms continue to worsen. He therefore underwent repeat bronchoscopy, with biopsy positive for adenocarcinoma consistent with lung primary. PET/CT on showed uptake in the right mid lung mass with no focal labs, as well as bilateral nodules that were highly suspicious for metastasis. The patient therefore appeared to have stage IV disease at presentation. MRI of the brain in 01/08 was negative. He was started on carboplatin/Alimta/keytruda. He had 3 cycles of same but unfortunately did not respond with progression leading to undergo hospitalization. 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 Fortunately he had rapid clinical response, and has been maintained on the same since. He has started palliative RT for L3 lesion and received 3 fractions. Patient presented to the emergency room with worsening shortness of breath and over the last couple weeks. Patient denies fever, sore throat, nasal congestion. Chest x-ray revealed demonstration of airspace disease. CTA chest was negative for pulmonary embolism. With worsening airspace consolidations on changes on background of interstitial lung disease. Partially visualized left psoas muscle mass that extends into the osseous structures. Patient has been started on IV antibiotics and steroids. Patient is reporting some improvement in breathing since admission. Patient is afebrile, SpO2 90% on 10 L. Counts stable, WBC 8.5, hemoglobin 13.5, platelets 118,000. Viral panel negative Review of Systems 10 point ROS is negative except as stated in the HPI Past Medical History Past Medical History: Cancer Additional Past Medical History / Comment(s): lung ca Past Surgical History: No Surgical Hx Reported Medications and Allergies Home Medications Medication Instructions Recorded Confirmed Type Adagrasib [Krazati] 600 mg PO BID 03/24/24 03/24/24 History Fluticasone/Umeclidin/Vilanter 1 puff INHALATION RT-DAILY 03/24/24 03/24/24 History [Trelegy Ellipta 100-62.5-25] Folic Acid 1 mg PO DAILY 03/24/24 03/24/24 History Gabapentin [Neurontin] 300 mg PO TID 03/24/24 03/24/24 History Megestrol Acetate 625mg/5ml 625 mg PO DAILY 03/24/24 03/25/24 History Suspension Metoclopramide [Reglan] 5 mg PO TID 03/24/24 03/24/24 History Midodrine HCl [ProAmantine] 5 mg PO TID 03/24/24 03/24/24 History Morphine Sulfate ER [Ms Contin] 30 mg PO Q12HR 03/24/24 03/24/24 History Pantoprazole Sodium [Protonix] 40 mg PO DAILY 03/24/24 03/24/24 History Sennosides [Senokot] 17.2 mg PO BID 03/24/24 03/24/24 History Vit C/E/Zn/Coppr/Lutein/Zeaxan 1 cap PO DAILY 03/24/24 03/24/24 History [Preservision Areds 2 Softgel] oxyCODONE HCL [OxyIR] 5 mg PO Q6H PRN 03/24/24 03/24/24 History polyethylene glycoL 3350 [Miralax] 17 gm PO DAILY PRN 03/24/24 03/24/24 History Allergies Allergy/AdvReac Type Severity Reaction Status Date / Time atorvastatin [From Lipitor] Allergy Rapid Verified 03/24/24 16:59 Heart Rate Physical Exam Vitals: Vital Signs Temp Pulse Resp BP Pulse Ox 03/25/24 13:08 83 20 130/66 94 L 03/25/24 11:30 92 03/25/24 11:17 86 03/25/24 09:30 70 20 140/68 90 L 03/25/24 09:00 73 20 117/81 89 L 07/08/24 08:45 90 L 03/25/24 08:44 71 03/25/24 07:40 65 18 120/63 90 L 03/25/24 06:03 78 20 121/67 92 L 03/25/24 04:25 70 03/25/24 04:14 71 03/25/24 01:02 64 03/25/24 00:46 69 03/24/24 22:20 75 18 121/79 92 L 03/24/24 20:13 78 19 104/51 97 03/24/24 19:52 88 03/24/24 19:42 97 94 L 03/24/24 19:00 98.2 F 75 22 114/60 95 03/24/24 18:00 75 24 93/53 93 L 03/24/24 17:56 75 03/24/24 17:41 68 03/24/24 17:03 67 22 106/63 89 L 03/24/24 16:00 97.8 F 71 20 116/65 89 L 03/24/24 14:56 24 91 L 03/24/24 14:50 65 03/24/24 14:26 61 - Constitutional General appearance: average body habitus, no acute distress - EENT Eyes: anicteric sclerae, EOMI ENT: hearing grossly normal - Respiratory Respiratory: bilateral: rales - Cardiovascular Rhythm: regular Heart sounds: normal: S1, S2 - Gastrointestinal General gastrointestinal: soft, no tenderness - Integumentary Integumentary: no jaundiced - Musculoskeletal Musculoskeletal: strength equal bilaterally - Psychiatric Psychiatric: A&O x's 3 Results CBC & Chem 7: 03/25/24 06:33 03/25/24 06:33 Labs: Abnormal Lab Results - Last 24 Hours (Table) 03/24/24 03/24/24 03/24/24 Range/Units 14:18 14:18 14:18 RDW (11.5-14.5) % MPV (9.5-12.2) FL Immature Gran # (0.00-0.04) X 10*3/uL Neutrophils # 8.3 H (1.3-7.7) k/uL Lymphocytes # 0.9 L (1.0-4.8) k/uL Eosinophils # (0.04-0.35) X 10*3/uL APTT 19.6 L (22.0-30.0) sec D-Dimer 1.57 H (<0.60) mg/L FEU Sodium 135 L (137-145) mmol/L Chloride 109 H (98-107) mmol/L Carbon Dioxide 19 L (22-30) mmol/L Anion Gap (4.00-12.00) mmol/L BUN 37 H (9-20) mg/dL Creatinine 1.36 H (0.66-1.25) mg/dL BUN/Creatinine Ratio (12.00-20.00) Ratio Glucose 103 H (74-99) mg/dL Calcium (8.7-10.3) mg/dL Albumin/Globulin Ratio (1.60-3.17) Ratio 03/25/24 03/25/24 Range/Units 06:33 06:33 RDW 15.0 H (11.5-14.5) % MPV 9.0 L (9.5-12.2) FL Immature Gran # 0.18 H (0.00-0.04) X 10*3/uL Neutrophils # (1.3-7.7) k/uL Lymphocytes # 0.43 L (1.0-4.8) k/uL Eosinophils # 0.01 L (0.04-0.35) X 10*3/uL APTT (22.0-30.0) sec D-Dimer (<0.60) mg/L FEU Sodium (137-145) mmol/L Chloride (98-107) mmol/L Carbon Dioxide 17.5 L (22-30) mmol/L Anion Gap 14.50 H (4.00-12.00) mmol/L BUN 30.8 H (9-20) mg/dL Creatinine (0.66-1.25) mg/dL BUN/Creatinine Ratio 25.67 H (12.00-20.00) Ratio Glucose 132 H (74-99) mg/dL Calcium 7.9 L (8.7-10.3) mg/dL Albumin/Globulin Ratio 1.58 L (1.60-3.17) Ratio Chest x-ray: report reviewed CT scan - chest: report reviewed Assessment and Plan (1) Adenocarcinoma, lung Current Visit: Yes Status: Acute Priority: High Code(s): C34.90 - MALIGNANT NEOPLASM OF UNSP PART OF UNSP BRONCHUS OR LUNG SNOMED Code(s): 975806555 (2) Acute exacerbation of chronic obstructive pulmonary disease Current Visit: Yes Status: Acute Priority: High Code(s): J44.1 - CHRONIC OBSTRUCTIVE PULMONARY DISEASE W (ACUTE) EXACERBATION SNOMED Code(s): 877626689 (3) Acute respiratory failure Current Visit: Yes Status: Acute Priority: High Code(s): J96.00 - ACUTE RESPIRATORY FAILURE, UNSP W HYPOXIA OR HYPERCAPNIA SNOMED Code(s): 68380176 Plan: SOB, acute respiratory failure: Presented to the emergency room with worsening shortness of breath over the last couple weeks -Chest x-ray revealed demonstration of airspace disease. CTA chest was negative for pulmonary embolism. With worsening airspace consolidations on changes on background of interstitial lung disease. Partially visualized left psoas muscle mass that extends into the osseous structures. -Agree with IV antibiotics and steroids. -SOB/respiratory failure appear to be r/t COPD exacerbation, and possible pneumonia. However will hold Adagrasib at this time due to potential side effect of pneumonitis -Pulmonology following Lung adenocarcinoma: -Full oncological history in HPI -Has been on Adagrasib since 04/09, with good clinical response, and has been maintained on the same since -He has started palliative RT for L3 lesion and received 3 fractions -Will hold Adagrasib until patient acutely recovers attests: I have performed H&P and developed impression and plan of care for patient, discussed with dictator. I agree with dictated note, documented as a scribe
[2024-03-26] MEDS ORDERED: IPRATROPIUM 0.5 MG/2.5 ML NEBU INHALATION SCH (08:00)
[2024-03-26] MEDS: SYMBICORT 80-4.5 MCG INHALER INHALATION SCH (08:04)
[2024-03-26 11:11] LABS: Glucose,Whole Blood 156 mg/dL (70-110)
--- NOTE | 2024-03-26 14:55 | P.PN ---
Subjective Progress Note Date: 03/26/24 This is a 74-year-old male patient with a known history of chronic obstructive pulmonary disease, oxygen dependent, lung cancer and is been followed mainly in [facility]. He has been on Krazati for approximately 1 year now. Presented here to the emergency room yesterday with increasing shortness of breath over the past several days and low oxygen readings. Chest x-ray reveals no evidence of pleural effusion, focal consolidation or pneumothorax. CT angiogram revealed no evidence of pulmonary embolism. There is worsening airspace consolidation changes on the background of interstitial lung disease compared to February 02, 2024. There is a partially visualized left psoas muscle mass that extends into the osseous structures. White count 8.5. Hemoglobin 13.5. Platelets 182. Sodium 137. Potassium 5.0. Bicarb 18. BUN 31. Creatinine 1.2. Glucose 132. Viral screen is negative. He is seen today in consultation in the emergency department. He is sitting up on a stretcher. Awake and alert. He is dyspneic with conversation. He is requiring 12 L high flow nasal cannula to maintain O2 saturations in the 90s. He is somewhat of a poor historian. No family at the bedside. He has been initiated on DuoNeb inhalations, Symbicort, Solu-Medrol. Antibiotics in the form of ceftriaxone and azithromycin. The patient is seen today March 26, 2024 in follow-up on the regular medical floor. He is currently sitting up in bed. Awake and alert in no acute distress. Breathing easier today compared to yesterday. He is still requiring 10 L high flow nasal cannula. His Krazati has been placed on hold for possible cause of pneumonitis/interstitial lung disease. Hopefully he will respond well to steroids. Glucose 120. Hemoglobin A1c 5.8. He is continued on DuoNeb inhalations, Symbicort, Solu-Medrol. Antibiotics in the form of ceftriaxone and azithromycin. Procalcitonin 0.16. Objective - Vital Signs Vital signs: Vital Signs Temp 97.7 F 03/26/24 12:59 Pulse 82 03/26/24 12:59 Resp 17 03/26/24 12:59 BP 97/51 03/26/24 12:59 Pulse Ox 91 L 03/26/24 12:59 FiO2 Intake & Output 03/25/24 03/26/24 03/26/24 18:59 06:59 18:59 Intake Total 300 Balance 300 Weight 68.039 kg Intake: Intake, IV Titration 300 Amount Azithromycin 250 mg In 250 Sodium Chloride 0.9% 250 ml @ 250 mls/hr IVPB DAILY [facility] Rx#:[id number] cefTRIAXone 2 gm In 50 Sodium Chloride 0.9% 50 ml @ 100 mls/hr IVPB Q24HR [facility] Rx#:[id number] Other: Voiding Method Toilet Urinal # Voids 1 # Bowel Movements 1 - Exam GENERAL EXAM: Alert, thin, 74-year-old male, on 10 L high flow nasal cannula, fairly comfortable in no apparent distress. HEAD: Normocephalic. EYES: Normal reaction of pupils, equal size. NOSE: Clear with pink turbinates. THROAT: No erythema or exudates. NECK: No masses, no JVD. CHEST: No chest wall deformity. LUNGS: Equal air entry with bilateral scattered rhonchi. CVS: S1 and S2 normal with no audible murmur, regular rhythm. ABDOMEN: No hepatosplenomegaly, normal bowel sounds, no guarding or rigidity. SPINE: No scoliosis or deformity SKIN: No rashes CENTRAL NERVOUS SYSTEM: No focal deficits, tone is normal in all 4 extremities. EXTREMITIES: There is no peripheral edema. No clubbing, no cyanosis. Peripheral pulses are intact. - Labs CBC & Chem 7: 03/25/24 06:33 03/25/24 06:33 Labs: Abnormal Lab Results - Last 24 Hours (Table) 03/25/24 03/25/24 03/25/24 Range/Units 06:33 17:03 19:58 POC Glucose (mg/dL) 184 H 150 H (70-110) mg/dL Procalcitonin 0.16 H (0.02-0.09) ng/mL 03/26/24 03/26/24 Range/Units 06:08 11:10 POC Glucose (mg/dL) 146 H 156 H (70-110) mg/dL Procalcitonin (0.02-0.09) ng/mL Assessment and Plan Assessment: Acute on chronic hypoxic respiratory failure secondary to underlying lung cancer, possible pneumonia, pneumonitis, progressive ILD. Possibly secondary to Krazati. Currently placed on hold. Pulmonary embolism ruled out. There is worsening airspace consolidation changes on the background of interstitial lung disease compared to 02/02/2024. Right perifissural consolidation changes and/or prior mass is not significantly changed given differences in technique. This measures roughly 4.7 x 2.7 cm. No evidence of pneumothorax or pleural effusion. There is a partially visualized osseous destructive changes do extend to the left psoas muscle as seen previously History of adenocarcinoma lung cancer since December 2022. Considered stage IV at that time. He was started on carboplatin/Alimta/Keytruda for 3 cycles without much response. He was then started on Krazati in March 2023. He also received palliative radiation to an L3 lesion History of COPD Poor historian Plan: The patient was seen and evaluated Labs and medications reviewed Krazati placed on hold Continue DuoNeb inhalations, Symbicort, Solu-Medrol Continue ceftriaxone and azithromycin Titrate down the FiO2 as tolerated We will continue to follow I have personally seen and examined the patient, performed the documentation and the assessment and plan as written. Number of minutes spent on the visit: 10.
--- NOTE | 2024-03-26 15:57 | P.PN ---
Subjective Progress Note Date: 03/26/24 Principal diagnosis: Hypoxia, SOB In f/u today pt reports that he is still SOB, even with speaking, slightly better then on admit. No reported fevers, N, V, chest pain, acute changes in bowel or bladder habits. Objective - Vital Signs Vital signs: Vital Signs Temp 97.7 F 03/26/24 12:59 Pulse 82 03/26/24 12:59 Resp 17 03/26/24 12:59 BP 97/51 03/26/24 12:59 Pulse Ox 91 L 03/26/24 12:59 FiO2 Intake & Output 03/25/24 03/26/24 03/26/24 18:59 06:59 18:59 Intake Total 300 Balance 300 Weight 68.039 kg Intake: Intake, IV Titration 300 Amount Azithromycin 250 mg In 250 Sodium Chloride 0.9% 250 ml @ 250 mls/hr IVPB DAILY [facility] Rx#:[id number] cefTRIAXone 2 gm In 50 Sodium Chloride 0.9% 50 ml @ 100 mls/hr IVPB Q24HR [facility] Rx#:[id number] Other: Voiding Method Toilet Urinal # Voids 1 1 # Bowel Movements 1 1 - Constitutional General appearance: Present: cooperative, mild distress, thin - EENT Eyes: Present: anicteric sclerae, EOMI ENT: Present: hearing grossly normal - Respiratory Respiratory: bilateral: other (harsh air entry, c/w emphysema, no wheezing, crackles or rhonchi) - Cardiovascular Rhythm: regular Heart sounds: normal: S1, S2 Abnormal Heart Sounds: Absent: systolic murmur, diastolic murmur, rub, S3 Gallop, S4 Gallop, click, other - Peripheral edema leg Peripheral Edema: bilateral: None - Gastrointestinal General gastrointestinal: Present: normal bowel sounds, soft - Neurologic Neurologic: Present: CNII-XII intact - Musculoskeletal Musculoskeletal: Present: generalized weakness, strength equal bilaterally - Psychiatric Psychiatric: Present: A&O x's 3, appropriate affect, intact judgment & insight - Labs CBC & Chem 7: 03/25/24 06:33 03/25/24 06:33 Labs: Abnormal Lab Results - Last 24 Hours (Table) 03/25/24 03/25/24 03/25/24 Range/Units 06:33 17:03 19:58 POC Glucose (mg/dL) 184 H 150 H (70-110) mg/dL Procalcitonin 0.16 H (0.02-0.09) ng/mL 03/26/24 03/26/24 Range/Units 06:08 11:10 POC Glucose (mg/dL) 146 H 156 H (70-110) mg/dL Procalcitonin (0.02-0.09) ng/mL Assessment and Plan (1) Acute respiratory failure Current Visit: Yes Status: Acute Priority: High Code(s): J96.00 - ACUTE RESPIRATORY FAILURE, UNSP W HYPOXIA OR HYPERCAPNIA SNOMED Code(s): 36782466 (2) Acute exacerbation of chronic obstructive pulmonary disease Current Visit: Yes Status: Acute Priority: High Code(s): J44.1 - CHRONIC OBSTRUCTIVE PULMONARY DISEASE W (ACUTE) EXACERBATION SNOMED Code(s): 675280148 (3) Adenocarcinoma, lung Current Visit: Yes Status: Chronic Priority: Medium Code(s): C34.90 - MALIGNANT NEOPLASM OF UNSP PART OF UNSP BRONCHUS OR LUNG SNOMED Code(s): 044117977 Plan: Hypoxia, SOB, COPD exacerbation -Baseline O2 3L, pt is currently on 10L. -CTA negative for PE, worsening airspace consolidations on changes on background of interstitial lung disease. -Pt cont on IV antibiotics and steroids, stable symptoms. -Suspect COPD exacerbation/possible pneumonia. Pulm following -Hold Adagrasib due to potential side effect of pneumonitis Lung adenocarcinoma -Full oncological history in consult -Adagrasib since 04/09, with good clinical response, been maintained on the same since -He recently started palliative RT for L3 lesion and received 3 fractions-pt states he has several more days of radiation to go. Too low to suspect radiation pneumonitis -Hold Adagrasib until patient recovers from current condition. -Unclear if symptoms are from infection or from pneumonitis at this time. Will follow and see how pt progresses through hospital course. -Treatment recommendations will follow once pt recovered
[2024-03-26 16:31] LABS: Glucose,Whole Blood 124 mg/dL (70-110)
[2024-03-26 20:52] LABS: Glucose,Whole Blood 126 mg/dL (70-110)
[2024-03-26] MEDS: SYMBICORT 160-4.5 MCG INHALER INHALATION SCH (21:25)
[2024-03-27 06:22] LABS: Glucose,Whole Blood 131 mg/dL (70-110)
--- NOTE | 2024-03-27 11:04 | XR ---
EXAMINATION TYPE: XR chest 1V portable DATE OF EXAM: 03/27/2024 10:46 AM CLINICAL INDICATION:Male, 74 years old with history of pneumonia/lung ca; [facility] COMPARISON: Chest radiographs from 03/24/2024 TECHNIQUE: XR chest 1V portable Frontal view of the chest. FINDINGS: Lungs/Pleura: Similar multifocal airspace opacities. No evidence of pneumothorax or pleural effusion. Pulmonary vascularity: Unremarkable. Heart/mediastinum: Cardiomediastinal silhouette is unremarkable. Musculoskeletal: No acute osseous pathology. IMPRESSION: Airspace opacities in the lung bases similar to prior 03/24/2024
[2024-03-27 12:06] LABS: Glucose,Whole Blood 128 mg/dL (70-110)
[2024-03-27 13:43] LABS: Calcium 7.5 mg/dL (8.7-10.3); Carbon Dioxide 19.6 mmol/L (21.6-31.8); Chloride 106 mmol/L (96-109); Glucose 117 mg/dL (70-110); Sodium 140 mmol/L (135-145)
[2024-03-27 14:34] VITALS: RESP 18; TEMP 98.2
--- NOTE | 2024-03-27 14:36 | P.PN ---
Subjective Progress Note Date: 03/27/24 This is a 74-year-old male patient with a known history of chronic obstructive pulmonary disease, oxygen dependent, lung cancer and is been followed mainly in [facility]. He has been on Krazati for approximately 1 year now. Presented here to the emergency room yesterday with increasing shortness of breath over the past several days and low oxygen readings. Chest x-ray reveals no evidence of pleural effusion, focal consolidation or pneumothorax. CT angiogram revealed no evidence of pulmonary embolism. There is worsening airspace consolidation changes on the background of interstitial lung disease compared to February 02, 2024. There is a partially visualized left psoas muscle mass that extends into the osseous structures. White count 8.5. Hemoglobin 13.5. Platelets 182. Sodium 137. Potassium 5.0. Bicarb 18. BUN 31. Creatinine 1.2. Glucose 132. Viral screen is negative. He is seen today in consultation in the emergency department. He is sitting up on a stretcher. Awake and alert. He is dyspneic with conversation. He is requiring 12 L high flow nasal cannula to maintain O2 saturations in the 90s. He is somewhat of a poor historian. No family at the bedside. He has been initiated on DuoNeb inhalations, Symbicort, Solu-Medrol. Antibiotics in the form of ceftriaxone and azithromycin. The patient is seen today March 26, 2024 in follow-up on the regular medical floor. He is currently sitting up in bed. Awake and alert in no acute distress. Breathing easier today compared to yesterday. He is still requiring 10 L high flow nasal cannula. His Krazati has been placed on hold for possible cause of pneumonitis/interstitial lung disease. Hopefully he will respond well to steroids. Glucose 120. Hemoglobin A1c 5.8. He is continued on DuoNeb inhalations, Symbicort, Solu-Medrol. Antibiotics in the form of ceftriaxone and azithromycin. Procalcitonin 0.16. The patient is seen today March 27, 2024 in follow-up on the regular medical floor. He is currently resting comfortably in bed. Awake and alert in no acute distress. Still requiring oxygen at 10 L high flow nasal cannula. He denies any worsening shortness of breath, cough or congestion. He remains on Symbicort, DuoNeb inhalations, Solu-Medrol. Antibiotics in the form of ceftriaxone. Chest x-ray reveals similar airspace opacities in the lung bases. Sodium 140. Potassium 4.0. Bicarb 20. BUN 33. Creatinine 1.1. Glucose 117. The patient is quite anxious to go home. Objective - Vital Signs Vital signs: Vital Signs Temp 97.6 F 03/27/24 07:34 Pulse 88 03/27/24 12:04 Resp 17 03/27/24 07:34 BP 121/54 03/27/24 07:34 Pulse Ox 97 03/27/24 08:06 FiO2 Intake & Output 03/26/24 03/27/24 03/27/24 18:59 06:59 18:59 Intake Total 550 Output Total 100 Balance 450 Intake: Intake, IV Titration 300 Amount Azithromycin 250 mg In 250 Sodium Chloride 0.9% 250 ml @ 250 mls/hr IVPB DAILY [facility] Rx#:[id number] cefTRIAXone 2 gm In 50 Sodium Chloride 0.9% 50 ml @ 100 mls/hr IVPB Q24HR [facility] Rx#:[id number] Oral 250 Output: Urine 100 Other: # Voids 1 3 # Bowel Movements 1 1 - Exam GENERAL EXAM: Alert, pleasant 74-year-old male, on 10 L high flow nasal cannula, comfortable in no apparent distress. HEAD: Normocephalic. EYES: Normal reaction of pupils, equal size. NOSE: Clear with pink turbinates. THROAT: No erythema or exudates. NECK: No masses, no JVD. CHEST: No chest wall deformity. LUNGS: Equal air entry with bilateral scattered rhonchi. CVS: S1 and S2 normal with no audible murmur, regular rhythm. ABDOMEN: No hepatosplenomegaly, normal bowel sounds, no guarding or rigidity. SPINE: No scoliosis or deformity SKIN: No rashes CENTRAL NERVOUS SYSTEM: No focal deficits, tone is normal in all 4 extremities. EXTREMITIES: There is no peripheral edema. No clubbing, no cyanosis. Peripheral pulses are intact. - Labs CBC & Chem 7: 03/25/24 06:33 03/27/24 06:52 Labs: Abnormal Lab Results - Last 24 Hours (Table) 03/26/24 03/26/24 03/27/24 Range/Units 16:27 20:50 06:21 Carbon Dioxide (21.6-31.8) mmol/L Anion Gap (4.00-12.00) mmol/L BUN (9.0-27.0) mg/dL BUN/Creatinine Ratio (12.00-20.00) Ratio Glucose (70-110) mg/dL POC Glucose (mg/dL) 124 H 126 H 131 H (70-110) mg/dL Calcium (8.7-10.3) mg/dL 03/27/24 03/27/24 Range/Units 06:52 12:04 Carbon Dioxide 19.6 L (21.6-31.8) mmol/L Anion Gap 14.40 H (4.00-12.00) mmol/L BUN 33.0 H (9.0-27.0) mg/dL BUN/Creatinine Ratio 30.00 H (12.00-20.00) Ratio Glucose 117 H (70-110) mg/dL POC Glucose (mg/dL) 128 H (70-110) mg/dL Calcium 7.5 L (8.7-10.3) mg/dL Microbiology - Last 24 Hours (Table) 03/25/24 09:03 Blood Culture - Preliminary Blood Assessment and Plan Assessment: Acute on chronic hypoxic respiratory failure secondary to underlying lung cancer, possible pneumonia, pneumonitis, progressive ILD. Possibly secondary to Krazati. Currently placed on hold. Pulmonary embolism ruled out. There is worsening airspace consolidation changes on the background of interstitial lung disease compared to 02/02/2024. Right perifissural consolidation changes and/or prior mass is not significantly changed given differences in technique. This measures roughly 4.7 x 2.7 cm. No evidence of pneumothorax or pleural effusion. There is a partially visualized osseous destructive changes do extend to the left psoas muscle as seen previously History of adenocarcinoma lung cancer since December 2022. Considered stage IV at that time. He was started on carboplatin/Alimta/Keytruda for 3 cycles without much response. He was then started on Krazati in March 2023. He also received palliative radiation to an L3 lesion History of COPD Poor historian Plan: The patient was seen and evaluated X-ray, labs and medications reviewed The patient is anxious to go home Will arrange for available oxygen at 10 L Complete 5 more days of Augmentin Continue his home Trelegy, nebulized treatments Continue on prednisone at 40 mg daily until seen by Dr. Herrera Follow-up in the office in 1 week I have personally seen and examined the patient, performed the documentation and the assessment and plan as written. Number of minutes spent on the visit: 10.
[2024-03-27 15:50] VITALS: BP 127/66
[2024-03-27 16:00] VITALS: PULSE 79
[2024-03-27 16:29] LABS: Glucose,Whole Blood 142 mg/dL (70-110)
--- NOTE | 2024-03-27 17:43 | P.PN ---
Subjective Progress Note Date: 03/27/24 Principal diagnosis: Hypoxia, SOB In f/u today pt SOB is persistent, not progressive, he was on 8L, put back on 10L. No reported fevers, N, V, chest pain, acute changes in bowel or bladder habits. Objective - Vital Signs Vital signs: Vital Signs Temp 98.2 F 03/27/24 14:03 Pulse 79 03/27/24 15:59 Resp 18 03/27/24 14:03 BP 127/66 03/27/24 15:50 Pulse Ox 91 L 03/27/24 14:03 FiO2 Intake & Output 03/26/24 03/27/24 03/27/24 18:59 06:59 18:59 Intake Total 550 Output Total 100 Balance 450 Intake: Intake, IV Titration 300 Amount Azithromycin 250 mg In 250 Sodium Chloride 0.9% 250 ml @ 250 mls/hr IVPB DAILY [facility] Rx#:[id number] cefTRIAXone 2 gm In 50 Sodium Chloride 0.9% 50 ml @ 100 mls/hr IVPB Q24HR [facility] Rx#:[id number] Oral 250 Output: Urine 100 Other: # Voids 1 3 # Bowel Movements 1 1 - Constitutional General appearance: Present: average body habitus, cooperative, mild distress - EENT Eyes: Present: anicteric sclerae, EOMI ENT: Present: hearing grossly normal - Respiratory Respiratory: bilateral: diminished - Cardiovascular Rhythm: regular Heart sounds: normal: S1, S2 Abnormal Heart Sounds: Absent: systolic murmur, diastolic murmur, rub, S3 Gallop, S4 Gallop, click, other - Peripheral edema leg Peripheral Edema: bilateral: None - Gastrointestinal General gastrointestinal: Present: normal bowel sounds - Integumentary Integumentary Comment(s): barry complexion - Neurologic Neurologic: Present: CNII-XII intact - Musculoskeletal Musculoskeletal: Present: strength equal bilaterally - Psychiatric Psychiatric: Present: A&O x's 3, appropriate affect, intact judgment & insight - Labs CBC & Chem 7: 03/25/24 06:33 03/27/24 06:52 Labs: Abnormal Lab Results - Last 24 Hours (Table) 03/26/24 03/27/24 03/27/24 Range/Units 20:50 06:21 06:52 Carbon Dioxide 19.6 L (21.6-31.8) mmol/L Anion Gap 14.40 H (4.00-12.00) mmol/L BUN 33.0 H (9.0-27.0) mg/dL BUN/Creatinine Ratio 30.00 H (12.00-20.00) Ratio Glucose 117 H (70-110) mg/dL POC Glucose (mg/dL) 126 H 131 H (70-110) mg/dL Calcium 7.5 L (8.7-10.3) mg/dL 03/27/24 03/27/24 Range/Units 12:04 16:27 Carbon Dioxide (21.6-31.8) mmol/L Anion Gap (4.00-12.00) mmol/L BUN (9.0-27.0) mg/dL BUN/Creatinine Ratio (12.00-20.00) Ratio Glucose (70-110) mg/dL POC Glucose (mg/dL) 128 H 142 H (70-110) mg/dL Calcium (8.7-10.3) mg/dL Microbiology - Last 24 Hours (Table) 03/25/24 09:03 Blood Culture - Preliminary Blood Assessment and Plan (1) Acute respiratory failure Current Visit: Yes Status: Acute Priority: High Code(s): J96.00 - ACUTE RESPIRATORY FAILURE, UNSP W HYPOXIA OR HYPERCAPNIA SNOMED Code(s): 86475217 (2) Acute exacerbation of chronic obstructive pulmonary disease Current Visit: Yes Status: Acute Priority: High Code(s): J44.1 - CHRONIC OBSTRUCTIVE PULMONARY DISEASE W (ACUTE) EXACERBATION SNOMED Code(s): 127914068 (3) Adenocarcinoma, lung Current Visit: Yes Status: Chronic Priority: Medium Code(s): C34.90 - MALIGNANT NEOPLASM OF UNSP PART OF UNSP BRONCHUS OR LUNG SNOMED Code(s): 654239581 Plan: Hypoxia, SOB, COPD exacerbation -Baseline O2 3L, pt is currently on 10L, not improved since admit. -CTA negative for PE, worsening airspace consolidations on changes on background of interstitial lung disease. -Pt cont on IV antibiotics and steroids, persistent/stable symptoms, no signific ant improvements. -Suspect COPD exacerbation/possible pneumonia but, drug induced pneumonitis is s till in the differential. Pulm following -Hold Adagrasib due to potential side effect of pneumonitis Lung adenocarcinoma -Full oncological history in consult -Adagrasib since 04/09, with good clinical response, been maintained on the same since -He recently started palliative RT for L3 lesion and received 3 fractions-pt states he has several more days of radiation to go. Too low to suspect rad iation pneumonitis -Hold Adagrasib until patient recovers from current condition. -Unclear if symptoms are from infection or from pneumonitis. Plan to transition to oral steroids. -Treatment recommendations will follow once pt recovered -Case discussed with IM AGRICULTURE TECHNICIAN. Have asked for help with mgmt of diabetic medications for steroid induced hyperglycemia as pt will be on steroid taper for 6-8 weeks or more. Follow up with pt daily. Will keep in contact with IM attests: I have seen and examined pt, performed H&P, developed impression and plan of care. Discussed with dictator. Agree with documentation, dictated as a scribe.
--- NOTE | 2024-03-28 14:26 | P.PN ---
Subjective Progress Note Date: 03/26/24 H&P Date: 03/25/24 Chief Complaint: Worsening hypoxia, shortness of breath This is a 74-year-old gentleman with past medical history significant for lung CA, on Krazati over the last year-follows with oncologist in [facility], chronic hypoxic respiratory failure, COPD, presented to the ER with progressive shortness of breath over the last 3 to 5 days, accompanied by inability to maintain O2 sats higher than the mid 80s. Reports his oxygen only goes up to 5 L. Denies cough, congestion. Denies chest pain, palpitations. Vague historian. chest x-ray reported no bilateral airspace opacities, no evidence of pleural effusion, focal consolidation or pneumothorax, pulmonary vascularity unremarkable.D-dimer elevated, 1.57 .chest CTA reported no evidence of pulmonary embolism, worsening airspace consolidation changes on a background of in terstitial lung disease compared to 02/02/2024, partially visualized left psoas muscle mass that extends into the osseous structures, as seen on prior. Eating [employer] this morning without difficulty, conversational dyspnea, currently requiring 11 L high flow nasal cannula to maintain O2 sats in the low 90s. Afebrile, normal WBC, hemoglobin 13.5, platelets 182, sodium 137, potassium 5 bicarb 17.5, BUN 37, 30.8, creatinine 1.36, 1.2 magnesium 2.2, proBNP 1100. Viral studies negative. Nebulized bronchodilators, Symbicort, IV steroids, ceftriaxone and azithromycin initiated in the ER. 03/26/24 procalcitonin 0.16.maintained on IV steroids, nebulized bronchodilators, Symbicort, ceftriaxone and azithromycin.blood sugars controlled. Hemoglobin A1c 5.8. Krazati placed on hold related to possible cause of acute symptoms as per oncology. Breathing improving, FiO2 has been titrated down to 10 L nasal cannula. Denies nausea or vomiting. Objective - Vital Signs Vital signs: Vital Signs Temp 97.7 F 03/26/24 12:59 Pulse 74 03/26/24 16:17 Resp 17 03/26/24 12:59 BP 97/51 03/26/24 12:59 Pulse Ox 91 L 03/26/24 12:59 FiO2 Intake & Output 03/25/24 03/26/24 03/26/24 18:59 06:59 18:59 Intake Total 300 Balance 300 Weight 68.039 kg Intake: Intake, IV Titration 300 Amount Azithromycin 250 mg In 250 Sodium Chloride 0.9% 250 ml @ 250 mls/hr IVPB DAILY MARLENE Rx#:[id number] cefTRIAXone 2 gm In 50 Sodium Chloride 0.9% 50 ml @ 100 mls/hr IVPB Q24HR MARLENE Rx#:[id number] Other: Voiding Method Toilet Urinal # Voids 1 1 # Bowel Movements 1 1 - Exam VITAL SIGNS: [As above] GENERAL: Alert and oriented x 3, sitting up on bed, no acute distress, conversing easier HEENT: Normocephalic, conjunctivae normal. eyes normal. No erythema or exu dates. NECK: Supple, no JVD. CARDIOVASCULAR: S1, S2 regular. No murmur RESPIRATION: Equal air entry improving, rhonchi scattered throughout. ABDOMEN: Soft, nondistended, nontender . No guarding. +BS LEGS: No edema. no swelling, no calf tenderness NERVOUS SYSTEM: Cranial N 2-12 grossly normal.No focal deficits.Strength and sensation grossly intact. Skin:Warm and dry,no rash - Labs CBC & Chem 7: 03/25/24 06:33 03/27/24 06:52 Labs: Abnormal Lab Results - Last 24 Hours (Table) 03/25/24 03/25/24 03/26/24 Range/Units 06:33 19:58 06:08 POC Glucose (mg/dL) 150 H 146 H (70-110) mg/dL Procalcitonin 0.16 H (0.02-0.09) ng/mL 03/26/24 03/26/24 Range/Units 11:10 16:27 POC Glucose (mg/dL) 156 H 124 H (70-110) mg/dL Procalcitonin (0.02-0.09) ng/mL Microbiology - Last 24 Hours (Table) 03/25/24 09:03 Blood Culture - Preliminary Blood Assessment and Plan Assessment: Acute on chronic hypoxic respiratory failure secondary to underlying lung cancer, on Krazati for the last year. CT reports worsening airspace consolidation changes on a background of interstitial lung disease compared to 02/02/2024.possible pneumonitis, progressive interstitial lung disease , secondary to possibly Krazati- placed on hold. Probable worsening interstitial lung disease as per pulmonary. PE ruled out. COPD, history of Partially visualized left psoas muscle mass that extends into the osseous structures, as seen on prior, Reported per CT. Plan: Continue on current medication resume ,monitoring and symptomatic treatment. Maintain aggressive pulmonary toileting, nebulized bronchodilators, LABA, steroids, antibiotics. Titrate FiO2. Case management arranging FiO2, nebulizer for discharge home tomorrow. The impression and plan of care has been dictated as directed. : I performed a history and examination of this patient, discussed the same with the dictator. I agree with the dictator's note ,documented as a scribe. Any additional findings or plans will be noted.
--- NOTE | 2024-03-28 14:36 | P.DS ---
Providers Date of admission: 03/24/24 17:15 Expected date of discharge: 03/27/24 Attending physician: Davidson Herrera Consults: 03/24/24 17:15 Consult Physician Routine Consulting Provider: Judy Benitez Consult Reason/Comments: hypoxia Do you want consulting provider notified?: Yes 03/24/24 17:52 Consult Physician Routine Consulting Provider: Bi Avila Consult Reason/Comments: CA Do you want consulting provider notified?: Yes Primary care physician: [place] [facility] Course: Final Diagnoses: Acute on chronic hypoxic respiratory failure secondary to underlying lung cancer, on Krazati for the last year. CT reports worsening airspace consolidation changes on a background of interstitial lung disease compared to 02/02/2024.possible pneumonitis, progressive interstitial lung disease , secondary to possibly Krazati- placed on hold. Probable worsening interstitial lung disease as per pulmonary, but possibility of pneumonitis secondary to his immunotherapy is also very likely.. Patient will remain off of Krazati and on steroids for about 6 to 8 weeks. Close monitoring of blood sugars outpatient. PE ruled out. COPD, history of Partially visualized left psoas muscle mass that extends into the osseous structures, as seen on prior, Reported per CT, discussed at the bedside by PCP with both patient and . Hospital course:This is a 74-year-old gentleman with past medical history significant for lung CA, on Krazati over the last year-follows with oncologist in [facility], chronic hypoxic respiratory failure, COPD, presented to the ER with progressive shortness of breath over the last 3 to 5 days, accompanied by inability to maintain O2 sats higher than the mid 80s. Reports his oxygen only goes up to 5 L. Denies cough, congestion. Denies chest pain, palpitations. Vague historian. chest x-ray reported no bilateral airspace opacities, no evidence of pleural effusion, focal consolidation or pneumothorax, pulmonary vascularity unremarkable.D-dimer elevated, 1.57 .chest CTA reported no evidence of pulmonary embolism, worsening airspace consolidation changes on a background of interstitial lung disease compared to 02/02/2024, partially visualized left psoas muscle mass that extends into the osseous structures, as seen on prior. Eating [employer] this morning without difficulty, conversational dyspnea, currently requiring 11 L high flow nasal cannula to maintain O2 sats in the low 90s. Afebrile, normal WBC, hemoglobin 13.5, platelets 182, sodium 137, potassium 5 bicarb 17.5, BUN 37, 30.8, creatinine 1.36, 1.2 magnesium 2.2, proBNP 1100. Viral studies negative. Nebulized bronchodilators, Symbicort, IV steroids, ceftriaxone and azithromycin initiated in the ER. 03/26/24 procalcitonin 0.16.maintained on IV steroids, nebulized bronchodilators, Symbicort, ceftriaxone and azithromycin.blood sugars controlled. Hemoglobin A1c 5.8. Krazati placed on hold related to possible cause of acute symptoms as per oncology. Breathing improving, FiO2 has been titrated down to 10 L nasal cannula. Denies nausea or vomiting. Maintained on 10 L high flow nasal cannula, conversing, eating without difficulty. Reports he is comfortable. Denies chest pain, palpitations or shortness of breath. Chest x-ray reported airspace opacities in bilateral bases similar to prior. PCP spoke with pulmonary, obtained clearance for discharge. Nebulizer and home O2 have been arranged as per case management. patient will be discharged home today in a stable condition with guarded prognosis. Steroid taper in clinic with PCP. Patient and have been advised to follow-up with PCP tomorrow. The impression and plan of care has been dictated as directed. : I performed a history and examination of this patient, discussed the same with the dictator. I agree with the dictator's note ,documented as a scribe. Any additional findings or plans will be noted. Patient Condition at Discharge: Stable Plan - Discharge Summary Discharge Rx Participant: Yes New Discharge Prescriptions: New Budesonide-Formot 160-4.5 Mcg [Symbicort 160-4.5 Mcg Inhaler] 2 puff INHALATION RT-BID each Amoxic-Pot Clav 875-125Mg [Augmentin 875-125] 1 tab PO Q12HR 5 Days #10 tab Ipratropium-Albuterol Nebulize [Duoneb 0.5 mg-3 mg/3 ml Soln] 3 ml INHALATION RT-QID #120 each Folic Acid 1 mg PO DAILY tab Acetaminophen Tab [Tylenol] 1,000 mg PO Q6HR PRN tab PRN Reason: Fever And/ Or Pain predniSONE 10 mg PO DIRECTED #90 tab Continue Metoclopramide [Reglan] 5 mg PO TID Megestrol Acetate 625mg/5ml Suspension 625 mg PO DAILY Sennosides [Senokot] 17.2 mg PO BID polyethylene glycoL 3350 [Miralax] 17 gm PO DAILY PRN PRN Reason: Constipation Pantoprazole Sodium [Protonix] 40 mg PO DAILY Midodrine HCl [ProAmantine] 5 mg PO TID oxyCODONE HCL [OxyIR] 5 mg PO Q6H PRN PRN Reason: Pain Vit C/E/Zn/Coppr/Lutein/Zeaxan [Preservision Areds 2 Softgel] 1 cap PO DAILY Morphine Sulfate ER [Ms Contin] 30 mg PO Q12HR Gabapentin [Neurontin] 300 mg PO TID Folic Acid 1 mg PO DAILY Fluticasone/Umeclidin/Vilanter [Trelegy Ellipta 100-62.5-25] 1 puff INHALATION RT-DAILY No Action Adagrasib [Krazati] 600 mg PO BID Discharge Medication List Adagrasib [Krazati] 600 mg PO BID 03/24/24 [History] Fluticasone/Umeclidin/Vilanter [Trelegy Ellipta 100-62.5-25] 1 puff INHALATION RT-DAILY 03/24/24 [History] Folic Acid 1 mg PO DAILY 03/24/24 [History] Gabapentin [Neurontin] 300 mg PO TID 03/24/24 [History] Megestrol Acetate 625mg/5ml Suspension 625 mg PO DAILY 03/24/24 [History] Metoclopramide [Reglan] 5 mg PO TID 03/24/24 [History] Midodrine HCl [ProAmantine] 5 mg PO TID 03/24/24 [History] Morphine Sulfate ER [Ms Contin] 30 mg PO Q12HR 03/24/24 [History] Pantoprazole Sodium [Protonix] 40 mg PO DAILY 03/24/24 [History] Sennosides [Senokot] 17.2 mg PO BID 03/24/24 [History] Vit C/E/Zn/Coppr/Lutein/Zeaxan [Preservision Areds 2 Softgel] 1 cap PO DAILY 03/24/24 [History] oxyCODONE HCL [OxyIR] 5 mg PO Q6H PRN 03/24/24 [History] polyethylene glycoL 3350 [Miralax] 17 gm PO DAILY PRN 03/24/24 [History] Acetaminophen Tab [Tylenol] 1,000 mg PO Q6HR PRN tab 03/27/24 [Rx] Amoxic-Pot Clav 875-125Mg [Augmentin 875-125] 1 tab PO Q12HR 5 Days #10 tab 03/27/24 [Rx] Budesonide-Formot 160-4.5 Mcg [Symbicort 160-4.5 Mcg Inhaler] 2 puff INHALATION RT-BID each 03/27/24 [Rx] Folic Acid 1 mg PO DAILY tab 03/27/24 [Rx] Ipratropium-Albuterol Nebulize [Duoneb 0.5 mg-3 mg/3 ml Soln] 3 ml INHALATION RT-QID #120 each 03/27/24 [Rx] predniSONE 10 mg PO DIRECTED #90 tab 03/27/24 [Rx] Follow up Appointment(s)/Referral(s): Peyman Sánchez Jr, [Primary Care Provider] - 04/04/24 1:00 pm [facility],Equipment [NON-STAFF] - As Needed (Call [facility] to arrange delivery of the oxygen concentrator. ) [facility], [NON-STAFF] - As Needed ([facility] will call you to schedule your in home nursing and physical therapy visits. ) Activity/Diet/Wound Care/Special Instructions: -Hold Adagrasib until patient recovers from current condition, resume as recommended per oncology Home oxygen and nebulizer arranged as per case management Discharge Disposition: HOME WITH HOME HEALTH SERVICES
== END 2024-03-27 18:24 | disposition home health service (06) | DRG 189 ==
LOC: EC 14:00 → 4SSUR 17:15
PROVIDERS: ADMIT Family Medicine; ATTEND Family Medicine
DX: J96.21 Acute and chronic respiratory failure with hypoxia (principal); J18.9 Pneumonia, unspecified organism; C34.90 Malignant neoplasm of unspecified part of unspecified bronchus or lung; J44.0 Chronic obstructive pulmonary disease with (acute) lower respiratory infection; J44.1 Chronic obstructive pulmonary disease with (acute) exacerbation; J96.22 Acute and chronic respiratory failure with hypercapnia; Z20.822 Contact with and (suspected) exposure to COVID-19; F41.9 Anxiety disorder, unspecified; Z51.5 Encounter for palliative care; Z79.52 Long term (current) use of systemic steroids; Z79.899 Other long term (current) drug therapy; Z85.118 Personal history of other malignant neoplasm of bronchus and lung; Z99.81 Dependence on supplemental oxygen; Z88.8 Allergy status to other drugs, medicaments and biological substances; T50.995A Adverse effect of other drugs, medicaments and biological substances, initial encounter; J84.89 Other specified interstitial pulmonary diseases; Z79.51 Long term (current) use of inhaled steroids; X58.XXXA Exposure to other specified factors, initial encounter
CPT/HCPCS: 36415; 71045; 71275; 80048; 80053; 83036; 83735; 83880; 84145; 84484; 85025; 85379; 85610; 85730; 87040; 87449; 87502; 87636; 93005; 94640; 94760; 96361; 96365; 96366; 96368; 96374; 96375; 96376; 99291

== ENCOUNTER 2024-04-13 09:15 | Observation (INO) | payer MEDICARE ==
--- NOTE | 2024-04-13 09:57 | ED ---
General Adult HPI - General Chief complaint: Extremity Injury, Lower Stated complaint: L Hip Pain Time Seen by Provider: 04/13/24 09:16 Source: patient, family, EMS, RN notes reviewed Mode of arrival: EMS Limitations: no limitations - History of Present Illness Initial comments: Patient is a pleasant 74-year-old male present to the emergency department with concerns with hip pain. 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 Patient has had recent radiation. Patient was on treatment prior to this that was discontinued secondary to inflammation. Symptoms have progressed over months, more so the past couple of weeks. Patient finds it difficult to walk. Patient does request pain control and would like to go home following th is. Patient denies any dyspnea and states his oxygen is always low as he is on 10 L of oxygen at home chronic. Patient states his oxygen is not normally in the 90s - Related Data Home Medications Medication Instructions Recorded Confirmed Adagrasib [Krazati] 600 mg PO BID 03/24/24 03/24/24 Fluticasone/Umeclidin/Vilanter 1 puff INHALATION RT-DAILY 03/24/24 03/24/24 [Génesis Andrade 100-62.5-25] Folic Acid 1 mg PO DAILY 03/24/24 03/24/24 Gabapentin [Neurontin] 300 mg PO TID 03/24/24 03/24/24 Megestrol Acetate 625mg/5ml 625 mg PO DAILY 03/24/24 03/25/24 Suspension Metoclopramide [Reglan] 5 mg PO TID 03/24/24 03/24/24 Midodrine HCl [ProAmantine] 5 mg PO TID 03/24/24 03/24/24 Morphine Sulfate ER [Ms Contin] 30 mg PO Q12HR 03/24/24 03/24/24 Pantoprazole Sodium [Protonix] 40 mg PO DAILY 03/24/24 03/24/24 Sennosides [Senokot] 17.2 mg PO BID 03/24/24 03/24/24 Vit C/E/Zn/Coppr/Lutein/Zeaxan 1 cap PO DAILY 03/24/24 03/24/24 [Preservision Areds 2 Softgel] oxyCODONE HCL [OxyIR] 5 mg PO Q6H PRN 03/24/24 03/24/24 polyethylene glycoL 3350 [Miralax] 17 gm PO DAILY PRN 03/24/24 03/24/24 Previous Rx's Medication Instructions Recorded Acetaminophen Tab [Tylenol] 1,000 mg PO Q6HR PRN tab 03/27/24 Amoxic-Pot Clav 875-125Mg 1 tab PO Q12HR 5 Days #10 tab 03/27/24 [Augmentin 875-125] Budesonide-Formot 160-4.5 Mcg 2 puff INHALATION RT-BID each 03/27/24 [Symbicort 160-4.5 Mcg Inhaler] Folic Acid 1 mg PO DAILY tab 03/27/24 Ipratropium-Albuterol Nebulize 3 ml INHALATION RT-QID #120 each 03/27/24 [Duoneb 0.5 mg-3 mg/3 ml Soln] predniSONE 10 mg PO DIRECTED #90 tab 03/27/24 Allergies Allergy/AdvReac Type Severity Reaction Status Date / Time atorvastatin [From Lipitor] Allergy Rapid Verified 04/13/24 09:18 Heart Rate Review of Systems ROS Statement: Those systems with pertinent positive or pertinent negative responses have been documented in the HPI. ROS Other: All systems not noted in ROS Statement are negative. Constitutional: Denies: fever Eyes: Denies: eye pain Respiratory: Reports: as per HPI Musculoskeletal: Reports: as per HPI Past Medical History Past Medical History: Cancer Additional Past Medical History / Comment(s): lung ca with mets to bone. History of Any Multi-Drug Resistant Organisms: None Reported Past Surgical History: No Surgical Hx Reported Past Anesthesia/Blood Transfusion Reactions: No Reported Reaction Past Psychological History: No Psychological Hx Reported Smoking Status: Former smoker General Exam Limitations: no limitations General appearance: alert, in no apparent distress Head exam: Present: normocephalic Eye exam: Present: normal appearance Neck exam: Present: normal inspection Respiratory exam: Present: normal lung sounds bilaterally Cardiovascular Exam: Present: regular rate, normal rhythm GI/Abdominal exam: Present: soft. Absent: tenderness Extremities exam: Present: tenderness (Mild left diffuse hip) Neurological exam: Present: alert. Absent: motor sensory deficit Expanded Motor strength exam: RLE: 5, LLE: 5 Psychiatric exam: Present: normal affect, normal mood Skin exam: Present: normal color Course Vital Signs 04/13/24 04/13/24 04/13/24 09:22 10:20 12:22 Pulse Rate 68 59 L 68 Respiratory 18 16 16 Rate Blood Pressure 106/58 110/67 101/65 O2 Sat by Pulse 88 L 88 L Oximetry Medical Decision Making - Medical Decision Making Was pt. sent in by a medical professional or institution ([facility] [place], [employer]ATION NEUROPSYCHOLOGIST, urgent care, hospital, or [place] health care facility...) When possible be specific @ -No Did you speak to anyone other than the patient for history (EMS, parent, family, police, friend...)? What history was obtained from this source @ - is present and helps provide history including history of lung cancer, metastatic Did you review nursing and triage notes (agree or disagree)? Why? @ -I reviewed and agree with nursing and triage notes Were old charts reviewed (outside hosp., previous admission, EMS record, old EKG, old radiological studies, urgent care reports/EKG's, [place] health care facility records)? Report findings @ -No old charts were reviewed Differential Diagnosis (chest pain, altered mental status, abdominal pain women, abdominal pain men, vaginal bleeding, weakness, fever, dyspnea, syncope, headache, dizziness, GI bleed, back pain, seizure, CVA, palpatations, mental health, musculoskeletal)? @ -Differential Musculoskeletal Muscular strain, contusion, ligament sprain, fracture, arthritis, septic arthritis, bursitis, cellulitis, muscle spasm, nerve compression, DVT, arterial occlusion, herpes zoster, electrolyte abnormality, tumor.... This is not meant to be in all inclusive list EKG interpreted by me (3pts min.). @ -As above X-rays interpreted by me (1pt min.). @ -Left hip and pelvis x-ray shows no acute process CT interpreted by me (1pt min.). @ -None done U/S interpreted by me (1pt. min.). @ -None done What testing was considered but not performed or refused? (CT, X-rays, U/S, labs)? Why? @ -None What meds were considered but not given or refused? Why? @ -None Did you discuss the management of the patient with other professionals (professionals i.e. [facility] [place], AVIATION NEUROPSYCHOLOGIST, lab, RT, psych nurse, manager social responsibility, meat and seafood manager, teacher, parachute officer, case mgr)? Give summary @ -Case was discussed with Dr. Sánchez who will admit his patient Was smoking cessation discussed for >3mins.? @ -No Was critical care preformed (if so, how long)? @ -No Were there social determinants of health that impacted care today? How? (Senait elessness, low income, unemployed, alcoholism, drug addiction, transportation, low edu. Level, literacy, decrease access to med. care, shelter, rehab)? @ -No Was there de-escalation of care discussed even if they declined (Discuss DNR or withdrawal of care, Hospice)? DNR status @ -No What co-morbidities impacted this encounter? (DM, HTN, Smoking, COPD, CAD, Cancer, CVA, ARF, Chemo, Hep., AIDS, mental health diagnosis, sleep apnea, morbid obesity)? @ -Lung cancer with bony metastasis Was patient admitted / discharged? Hospital course, mention meds given and route, prescriptions, significant lab abnormalities, going to OR and other pertinent info. @ -Patient given 2 doses of Dilaudid without improvement. Patient is not comfortable with discharge home. Case discussed with Dr. Contreras who is familiar with this patient and will admit. Admission orders placed. Undiagnosed new problem with uncertain prognosis? @ -No Drug Therapy requiring intensive monitoring for toxicity (Heparin, Nitro, Insulin, Cardizem)? @ -No Were any procedures done? @ -No Diagnosis/symptom? @ -Intractable hip pain Acute, or Chronic, or Acute on Chronic? @ -Acute Uncomplicated (without systemic symptoms) or Complicated (systemic symptoms)? @ -Default Side effects of treatment? @ -No Exacerbation, Progression, or Severe Exacerbation? @ -No Poses a threat to life or bodily function? How? (Chest pain, [place], [place], pneumonia, PE, COPD, DKA, ARF, appy, cholecystitis, CVA, Diverticulitis, Homicidal, Suicidal, threat to staff... and all critical care pts) @ -No Disposition Clinical Impression: Adenocarcinoma, lung, Hypoxia, Intractable pain Disposition: ADMITTED IP TO THIS [facility] Condition: Poor Is patient prescribed a controlled substance at d/c from ED?: No Referrals: Peyman Sánchez Jr, DO [Primary Care Provider] - 1-2 days Forms: Who Do I Call?, Community Resources, Help In The Home Time of Disposition: 12:55
--- NOTE | 2024-04-13 10:15 | XR ---
EXAMINATION TYPE: XR Hip LT and AP Pelvis DATE OF EXAM: 04/13/2024 COMPARISON: NONE HISTORY: Pain. Stage IV lung cancer with bone metastasis TECHNIQUE: A single AP view of the pelvis is obtained. Two views of the left hip are obtained. FINDINGS: There is no acute fracture/dislocation evident in the pelvis. The hip and sacroiliac joints appear s ymmetric and unremarkable. The overlying soft tissue appears unremarkable. The left hip is intact and no fracture or dislocation. There are no destructive bone lesions within the left hip or pelvis. IMPRESSION: 1. No destructive bone lesions in the left hip or pelvis. 2. No acute fracture or dislocation left hip.
[2024-04-13] MEDS: HYDROmorphone 1 MG/ML 1 ML SYRINGE IM STA ×2 (10:18→11:57)
[2024-04-13] MEDS ORDERED: HYDROmorphone 1 MG/ML 1 ML SYRINGE IVP PRN (12:56)
[2024-04-13] MEDS ORDERED: NALOXONE 0.4 MG/ML 1 ML VIAL IV PRN (12:56)
[2024-04-13 14:19] LABS: Basophils # (A) 0.1 k/uL (0-0.2); Basophils % (A) 1 %; Eosinophils # (A) 0.6 k/uL (0-0.7); Eosinophils % (A) 5 %; HCT 43.5 % (39.0-53.0); HGB 14.3 gm/dL (13.0-17.5); Lymphocytes % (A) 9 %; MCH 29.9 pg (25.0-35.0); MCHC 32.7 g/dL (31.0-37.0); MCV 91.4 fL (80.0-100.0); Mean Platelet Volume 6.5; Monocytes # (A) 0.5 k/uL (0-1.0); Monocytes % (A) 5 %; Neutrophils # (A) 9.3 k/uL (1.3-7.7); Neutrophils % (A) 80 %; Platelet Count 209 k/uL (150-450); RBC 4.76 m/uL (4.30-5.90); RDW 14.3 % (11.5-15.5); WBC 11.6 k/uL (3.8-10.6)
[2024-04-13 14:45] LABS: African American GFR (CKD) >90 (>60 ml/min/1.73 sqM); Anion Gap 4 mmol/L; Blood Urea Nitrogen 42 mg/dL (9-20); Calcium 8.4 mg/dL (8.4-10.2); Carbon Dioxide 22 mmol/L (22-30); Chloride 108 mmol/L (98-107); Glucose 80 mg/dL (74-99); Non-African American GFR(CKD) >90 (>60 ml/min/1.73 sqM); Potassium 4.3 mmol/L (3.5-5.1); Sodium 134 mmol/L (137-145)
[2024-04-13] MEDS: KETOROLAC 15 MG/ML 1 ML VIAL IVP STA (15:25)
[2024-04-13] MEDS ORDERED: IPRATROPIUM-ALBUTEROL 3 ML NEB INHALATION PRN (15:28)
[2024-04-13] MEDS: SODIUM CHLORIDE 0.9% 1,000 ML IV SCH (16:09)
[2024-04-13] MEDS: IPRATROPIUM-ALBUTEROL 3 ML NEB INHALATION SCH (16:12)
[2024-04-13] MEDS ORDERED: ACETAMINOPHEN TAB 500 MG TAB PO PRN (17:55)
[2024-04-13] MEDS ORDERED: MIDODRINE 5 MG TAB PO PRN (18:10)
[2024-04-13] MEDS: HYDROmorphone 0.5 MG/0.5 ML SYRINGE IVP PRN (18:22)
[2024-04-13] MEDS: [UNRECOGNIZED DRUG - OTHER] PO SCH (18:24)
[2024-04-13] MEDS ORDERED: MIDODRINE 5 MG TAB PO SCH (18:30)
[2024-04-13] MEDS ORDERED: HYDROmorphone 1 MG/ML 1 ML SYRINGE IM PRN (18:36)
[2024-04-13] MEDS: SENNOSIDES 8.6 MG TAB PO SCH (20:27)
[2024-04-13] MEDS: MORPHINE SULFATE ER 30 MG TABLET PO SCH (20:27)
[2024-04-13] MEDS: GABAPENTIN 300 MG CAP PO SCH (20:27)
[2024-04-13] MEDS: METOCLOPRAMIDE 5 MG TAB PO SCH (22:00)
[2024-04-14] MEDS: ONDANSETRON 4 MG/2 ML VIAL IVP PRN (06:36)
[2024-04-14] MEDS: polyethylene glycoL 3350 17 GM POWD.PACK PO SCH (08:09)
[2024-04-14] MEDS: MEGESTROL 400 MG/10 ML CUP PO SCH (08:09)
[2024-04-14] MEDS: FOLIC ACID 1 MG TAB PO SCH (08:10)
[2024-04-14] MEDS: predniSONE 10 MG TAB PO ONE (08:10)
[2024-04-14] MEDS: PANTOPRAZOLE 40 MG TABLET PO SCH (08:11)
[2024-04-14] MEDS: VIT A,C & E-LUTEIN-MINERALS 1 EACH TAB PO SCH (08:11)
[2024-04-14] MEDS: SYMBICORT 80-4.5 MCG INHALER INHALATION SCH (08:30)
--- NOTE | 2024-04-14 12:41 | P.HPIM ---
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 Discussed CODE STATUS with patient explained to him that he was terminally ill . Patient agreed to no intubation and no CPR, he wished for medical resuscitative of processes to be kept in place we agreed to that Review of Systems Constitutional: Reports night sweats, Reports sweats, Reports weakness Ears, nose, mouth and throat: Reports as per HPI Cardiovascular: Reports dyspnea on exertion Respiratory: Reports congestion, Reports dyspnea, Reports home oxygen, Reports pain on inspiration Gastrointestinal: Reports as per HPI Genitourinary: Reports as per HPI Musculoskeletal: Reports as per HPI Integumentary: Reports as per HPI Neurological: Reports as per HPI Psychiatric: Reports as per HPI Past Medical History Past Medical History: Cancer Additional Past Medical History / Comment(s): lung ca with mets to bone. skin Ca on face and leg History of Any Multi-Drug Resistant Organisms: None Reported Past Surgical History: No Surgical Hx Reported Past Anesthesia/Blood Transfusion Reactions: No Reported Reaction Past Psychological History: No Psychological Hx Reported Smoking Status: Former smoker Past Alcohol Use History: None Reported Past Drug Use History: None Reported - Past Family History Father Family Medical History: Congestive Heart Failure (CHF), COPD, Prostate Disorder Additional Family Medical History / Comment(s): Prostate CA Mother Family Medical History: Cancer Additional Family Medical History / Comment(s): breast Ca Medications and Allergies Home Medications Medication Instructions Recorded Confirmed Type Adagrasib [Krazati] 600 mg PO BID 03/24/24 04/13/24 History Megestrol Acetate 625mg/5ml 625 mg PO DAILY 03/24/24 04/13/24 History Suspension RX: Fluticasone/Umeclidin/Vilanter 1 puff INHALATION RT-DAILY 03/24/24 04/13/24 History [Stoneydestini Ellipta 100-62.5-25] RX: Folic Acid 1 mg PO DAILY 03/24/24 04/13/24 History RX: Gabapentin [Neurontin] 300 mg PO TID 03/24/24 04/13/24 History RX: Metoclopramide [Reglan] 5 mg PO TID 03/24/24 04/13/24 History RX: Midodrine HCl [ProAmantine] 5 mg PO TID 03/24/24 04/13/24 History RX: Morphine Sulfate ER [Ms Contin] 30 mg PO Q12HR 03/24/24 04/13/24 History RX: Pantoprazole Sodium [Protonix] 40 mg PO DAILY 03/24/24 04/13/24 History RX: Sennosides [Senokot] 17.2 mg PO BID 03/24/24 04/13/24 History RX: Vit C/E/Zn/Coppr/Lutein/Zeaxan 1 cap PO DAILY 03/24/24 04/13/24 History [Preservision Areds 2 Softgel] RX: oxyCODONE HCL [OxyIR] 5 mg PO Q6H PRN 03/24/24 04/13/24 History RX: polyethylene glycoL 3350 17 gm PO DAILY PRN 03/24/24 04/13/24 History [Miralax] RX: Acetaminophen Tab [Tylenol] 1,000 mg PO Q6HR PRN tab 03/27/24 04/13/24 Rx RX: Ipratropium-Albuterol Nebulize 3 ml INHALATION RT-QID #120 each 03/27/24 04/13/24 Rx [Duoneb 0.5 mg-3 mg/3 ml Soln] Ipratropium-Albuterol Nebulize 3 ml INHALATION RT-Q4H PRN 04/13/24 04/13/24 History [Duoneb 0.5 mg-3 mg/3 ml Soln] RX: predniSONE See Taper PO DIRECTED 04/13/24 04/13/24 History Allergies Allergy/AdvReac Type Severity Reaction Status Date / Time atorvastatin [From Lipitor] Allergy Rapid Verified 04/13/24 13:39 Heart Rate Physical Exam Osteopathic Statement: *. No significant issues noted on an osteopathic structural exam other than those noted in the History and Physical/Consult. Vitals: Vital Signs Temp Pulse Pulse Resp BP BP BP 04/14/24 08:48 16 04/14/24 08:45 04/14/24 08:44 92 04/14/24 08:32 94 04/14/24 07:56 77 15 04/14/24 07:19 98.3 F 93 16 104/60 04/14/24 01:37 98.5 F 77 15 105/52 04/13/24 21:53 73 108/61 04/13/24 21:27 76 04/13/24 21:15 75 04/13/24 20:00 73 15 04/13/24 19:47 98.4 F 76 15 105/58 04/13/24 16:22 80 04/13/24 16:12 78 04/13/24 15:14 04/13/24 14:47 98.2 F 66 16 108/63 04/13/24 14:33 77 20 98/65 Pulse Ox 04/14/24 08:48 86 L 04/14/24 08:45 91 L 04/14/24 08:44 04/14/24 08:32 04/14/24 07:56 04/14/24 07:19 87 L 04/14/24 01:37 92 L 04/13/24 21:53 04/13/24 21:27 04/13/24 21:15 04/13/24 20:00 04/13/24 19:47 93 L 04/13/24 16:22 04/13/24 16:12 04/13/24 15:14 92 L 04/13/24 14:47 82 L 04/13/24 14:33 90 L Intake and Output 04/13/24 04/14/24 04/14/24 22:59 06:59 14:59 Intake Total 240 Output Total 1000 Balance -760 Intake: Oral 240 Output: Urine 1000 Other: Voiding Method External Catheter External Catheter # Voids 2 General: [Patient awake, alert and oriented times 3. Patient in no acute distress. somewhat cachectic HEENT: [PERRL. EOMI. No pharyngeal erythema or exudate.] Neck: [No adenopathy.] Cardiac: [Heart regular in rate and rhythm. No S3. No S4. No clicks, rubs. No murmur.] Lungs: air exchange has improved significantly, find bibasilar crackles Abdomen: [No mass. No organomegaly. Bowel sounds presnt and normoactive in all 4 quadrants.] Extremes: [No edema no cyanosis no claudication normal pulses] : normal male genitalia Musculoskeletal: [No joint erythema, edema or tenderness.] Skin: [No rash.] Neurologic: [No lateralizing deficits. CN II - XII grossly intact.] Lymphatic: [No adenopathy.] Results CBC & Chem 7: 04/13/24 14:09 04/13/24 14:09 Labs: Abnormal Lab Results - Last 24 Hours (Table) 04/13/24 04/13/24 Range/Units 14:09 14:09 WBC 11.6 H (3.8-10.6) k/uL Neutrophils # 9.3 H (1.3-7.7) k/uL Sodium 134 L (137-145) mmol/L Chloride 108 H (98-107) mmol/L BUN 42 H (9-20) mg/dL Thrombosis Risk Factor Assmnt - Choose All That Apply Each Risk Factor Represents 2 Points: Age 61-74 years Thrombosis Risk Factor Assessment Total Risk Factor Score: 2 Thrombosis Risk Factor Assessment Level: Low Risk Assessment and Plan (1) Hypoxia Current Visit: Yes Status: Acute Code(s): R09.02 - HYPOXEMIA SNOMED Code(s): 901332186 (2) Intractable pain Current Visit: Yes Status: Acute Code(s): R52 - PAIN, UNSPECIFIED SNOMED Code(s): 09449042 (3) Adenocarcinoma, lung Current Visit: Yes Status: Chronic Priority: Medium Code(s): C34.90 - MALIGNANT NEOPLASM OF UNSP PART OF UNSP BRONCHUS OR LUNG SNOMED Code(s): 300979985 (4) Acute exacerbation of chronic obstructive pulmonary disease Current Visit: No Status: Acute Priority: High Code(s): J44.1 - CHRONIC OBSTRUCTIVE PULMONARY DISEASE W (ACUTE) EXACERBATION SNOMED Code(s): 156018260 (5) Acute respiratory failure Current Visit: No Status: Acute Priority: High Code(s): J96.00 - ACUTE RESPIRATORY FAILURE, UNSP W HYPOXIA OR HYPERCAPNIA SNOMED Code(s): 03481744 Plan: admitted to the hospital for pain management 50 g fentanyl patch was applied seems to be doing well Hypoxia has improved patient's 92% on 12 L per nasal cannula Discussed long-term care and terminal illness care Patient agreed to no CPR and no intubation However he wished to have medical treatment for arrhythmia and or hypoxia that's appropriate including antibiotics The were in agreement both he and his with this plan as of now Time with Patient: Greater than 30
--- NOTE | 2024-04-14 15:21 | P.CONS ---
History of Present Illness - Reason for Consult Consult date: 04/14/24 Metastatic lung cancer - Chief Complaint Left hip pain - History of Present Illness Mr. Curiel is a 74-year-old gentleman with a past medical history significant for metastatic adenocarcinoma of the lung with disease progression on carboplatin/Alimta/Keytruda and was subsequently placed on adagrasib (KRAS G12C inhibitor) in March 2023 with significant response and was noted to have L3 lesion at the end of January 2024 and received 3 fractions of palliative RT who presents with left-sided hip pain. This has been progressive over the past week to the point he was no longer to bear weight on the leg. He denies any erythema, swelling, fevers, or chills. Earlier this month, he was admitted for progressive hypoxia concerning for infectious etiology versus pneumonitis from the adagrasib. The medication was placed on hold and was discharged on 03/27/2024 on steroids. He has been undergoing a slow taper of the steroids and is currently on 30 mg daily. He did have 2 additional treatments of palliative radiation therapy and was due for imaging of the lumbar spine on 04/17/2024 with MRI. He has noted left hip pain, which has been progressive in nature. Due to the pain, he presented to the ED for additional management recommendations. In the ED, he was noted to require around 10 L nasal cannula with oxygen saturations in the mid 80s to low 90s. Labs revealed neutrophilic leukocytosis with WBC 11.6 (ANC 9.3), hemoglobin 14.3, platelets 209. BMP revealed creatinine 0.75 with no other electrolyte abnormalities. X-ray of the left hip reveals no acute fracture. He was given Dilaudid 0.5 mg IV and started on fentanyl 50 mcg patch in addition to long-acting morphine 30 mg every 12 hours. He was admitted to internal medicine for additional management recommendations. Review of Systems 14 point review of systems was conducted pertinent positives and negatives as noted per HPI Past Medical History Past Medical History: Cancer Additional Past Medical History / Comment(s): lung ca with mets to bone. skin Ca on face and leg History of Any Multi-Drug Resistant Organisms: None Reported Past Surgical History: No Surgical Hx Reported Past Anesthesia/Blood Transfusion Reactions: No Reported Reaction Past Psychological History: No Psychological Hx Reported Smoking Status: Former smoker Past Alcohol Use History: None Reported Past Drug Use History: None Reported - Past Family History Father Family Medical History: Congestive Heart Failure (CHF), COPD, Prostate Disorder Additional Family Medical History / Comment(s): Prostate CA Mother Family Medical History: Cancer Additional Family Medical History / Comment(s): breast Ca Medications and Allergies Home Medications Medication Instructions Recorded Confirmed Type Adagrasib [Krazati] 600 mg PO BID 03/24/24 04/13/24 History Megestrol Acetate 625mg/5ml 625 mg PO DAILY 03/24/24 04/13/24 History Suspension RX: Fluticasone/Umeclidin/Vilanter 1 puff INHALATION RT-DAILY 03/24/24 04/13/24 History [Trelegy Ellipta 100-62.5-25] RX: Folic Acid 1 mg PO DAILY 03/24/24 04/13/24 History RX: Gabapentin [Neurontin] 300 mg PO TID 03/24/24 04/13/24 History RX: Metoclopramide [Reglan] 5 mg PO TID 03/24/24 04/13/24 History RX: Midodrine HCl [ProAmantine] 5 mg PO TID 03/24/24 04/13/24 History RX: Morphine Sulfate ER [Ms Contin] 30 mg PO Q12HR 03/24/24 04/13/24 History RX: Pantoprazole Sodium [Protonix] 40 mg PO DAILY 03/24/24 04/13/24 History RX: Sennosides [Senokot] 17.2 mg PO BID 03/24/24 04/13/24 History RX: Vit C/E/Zn/Coppr/Lutein/Zeaxan 1 cap PO DAILY 03/24/24 04/13/24 History [Preservision Areds 2 Softgel] RX: oxyCODONE HCL [OxyIR] 5 mg PO Q6H PRN 03/24/24 04/13/24 History RX: polyethylene glycoL 3350 17 gm PO DAILY PRN 03/24/24 04/13/24 History [Miralax] RX: Acetaminophen Tab [Tylenol] 1,000 mg PO Q6HR PRN tab 03/27/24 04/13/24 Rx RX: Ipratropium-Albuterol Nebulize 3 ml INHALATION RT-QID #120 each 03/27/24 04/13/24 Rx [Duoneb 0.5 mg-3 mg/3 ml Soln] Ipratropium-Albuterol Nebulize 3 ml INHALATION RT-Q4H PRN 04/13/24 04/13/24 History [Duoneb 0.5 mg-3 mg/3 ml Soln] RX: predniSONE See Taper PO DIRECTED 04/13/24 04/13/24 History Allergies Allergy/AdvReac Type Severity Reaction Status Date / Time atorvastatin [From Lipitor] Allergy Rapid Verified 04/13/24 13:39 Heart Rate Physical Exam Vitals: Vital Signs Temp Pulse Pulse Resp BP BP BP 04/14/24 12:42 101 H 04/14/24 12:31 103 H 04/14/24 08:48 16 04/14/24 08:45 04/14/24 08:44 92 04/14/24 08:32 94 04/14/24 07:56 77 15 04/14/24 07:19 98.3 F 93 16 104/60 04/14/24 01:37 98.5 F 77 15 105/52 04/13/24 21:53 73 108/61 04/13/24 21:27 76 04/13/24 21:15 75 04/13/24 20:00 73 15 04/13/24 19:47 98.4 F 76 15 105/58 04/13/24 16:22 80 04/13/24 16:12 78 04/13/24 15:14 04/13/24 14:47 98.2 F 66 16 108/63 04/13/24 14:33 77 20 98/65 Pulse Ox 04/14/24 12:42 04/14/24 12:31 04/14/24 08:48 86 L 04/14/24 08:45 91 L 04/14/24 08:44 04/14/24 08:32 04/14/24 07:56 04/14/24 07:19 87 L 04/14/24 01:37 92 L 04/13/24 21:53 04/13/24 21:27 04/13/24 21:15 04/13/24 20:00 04/13/24 19:47 93 L 04/13/24 16:22 04/13/24 16:12 04/13/24 15:14 92 L 04/13/24 14:47 82 L 04/13/24 14:33 90 L Intake and Output 04/13/24 04/14/24 04/14/24 22:59 06:59 14:59 Intake Total 240 Output Total 1000 Balance -760 Intake: Oral 240 Output: Urine 1000 Other: Voiding Method External Catheter External Catheter # Voids 2 - Constitutional General appearance: cooperative, no acute distress - EENT Eyes: EOMI - Respiratory Respiratory: bilateral: CTA - Cardiovascular Rhythm: regular - Gastrointestinal General gastrointestinal: no distended, normal bowel sounds, soft, no tenderness - Neurologic Neurologic: CNII-XII intact Results CBC & Chem 7: 04/13/24 14:09 04/13/24 14:09 Labs: Abnormal Lab Results - Last 24 Hours (Table) 04/13/24 04/13/24 Range/Units 14:09 14:09 WBC 11.6 H (3.8-10.6) k/uL Neutrophils # 9.3 H (1.3-7.7) k/uL Sodium 134 L (137-145) mmol/L Chloride 108 H (98-107) mmol/L BUN 42 H (9-20) mg/dL Assessment and Plan (1) Intractable pain Current Visit: Yes Status: Acute Code(s): R52 - PAIN, UNSPECIFIED SNOMED Code(s): 11712991 (2) Adenocarcinoma, lung Current Visit: Yes Status: Chronic Priority: Medium Code(s): C34.90 - MALIGNANT NEOPLASM OF UNSP PART OF UNSP BRONCHUS OR LUNG SNOMED Code(s): 27279 6006 Plan: #Left hip pain -Progressive over the past week and was worse with weightbearing and relieved with rest -X-ray of the left hip reveals no acute fracture -Has had progressive improvement in pain since starting transdermal fentanyl patch at 50 mcg -Differential diagnosis includes pathologic fracture, metastasis to the bone, or osteonecrosis given steroid use -CT of the hip with and without contrast ordered -We discussed that if he has evidence of metastases, repeat staging CT scans should be performed #Metastatic adenocarcinoma of the lung -Progressed on first-line carboplatin/Alimta/Keytruda in [place] -Has been on adagrasib (KRAS G12C inhibitor) since March 2023 and had significant response to treatment -Most recent staging CT scans performed on 02/13/2024 at [facility] on noted metastasis at the L3 vertebral body and has now completed a total of 5 fractions of radiation therapy -He did have hospitalization on 03/25/2024 due to acute hypoxic respiratory failure of unclear etiology (infectious versus pneumonitis secondary to adagrasib) and has remained off of treatment since then and has been on slow steroid taper -His at bedside noted concern being off of treatment with concern for disease progression -He is currently scheduled to have repeat staging CT scans at the end of May 2024. Depending on the results of the CT of the hip above, these could be performed earlier and than this -Currently, he notes not being interested in hospice at this time. Given the concern for pneumonitis on adagrasib, sotorasib could be considered, which is also a KRAS G12C inhibitor Sandra Quinn MD
--- NOTE | 2024-04-14 16:47 | CT ---
EXAMINATION TYPE: CT hip LT wo/w con CT DLP: 586.4 mGycm, Automated exposure control for dose reduction was used. DATE OF EXAM: 04/14/2024 4:34 PM COMPARISON: 12/05/2023. CLINICAL INDICATION:Male, 74 years old with history of increase pain, check for mets; PHH, increased pain, check for mets TECHNIQUE: Axial images were obtained of the CT hip LT wo/w con, Additional coronal and sagittal refo rmatted images and soft tissue and bone window were obtained for review. Contrast used:100ml mL of Isovue 300 without and with IV Contrast, (None if empty) Oral contrast used: (None if empty) FINDINGS: Sclerotic focus within the left femoral neck unchanged from 12/05/2023 likely representing b one island. There is no evidence of fracture, subluxation, or dislocation. No significant soft tissu e swelling or joint effusion is identified. No focal muscular atrophy or edema is identified. No radi opaque foreign body identified. Mild degeneration changes with osteophyte formation and joint space n arrowing. IMPRESSION: 1. No evidence of fracture. 2. No evidence for suspicious lytic or sclerotic lesion. Bone island in the left femoral neck is unc hanged from 12/05/2023. 3. Mild left hip osteoarthrosis.
[2024-04-15] MEDS: predniSONE 20 MG TAB PO SCH (09:28)
--- NOTE | 2024-04-15 10:34 | XR ---
EXAMINATION TYPE: XR chest 1V portable DATE OF EXAM: 04/15/2024 10:26 AM CLINICAL INDICATION:Male, 74 years old with history of Progressive hypoxia; PHH COMPARISON: Chest radiographs from 03/27/2024 TECHNIQUE: XR chest 1V portable Frontal view of the chest. FINDINGS: Lungs/Pleura: Similar multifocal airspace opacities. No evidence of pneumothorax or pleural effusion. Pulmonary vascularity: Unremarkable. Heart/mediastinum: Cardiomediastinal silhouette is unremarkable. Musculoskeletal: No acute osseous pathology. Other findings: None Lines/Tubes: IMPRESSION: Multifocal airspace opacities not significantly different from 03/27/2024 given differences in techniq ue.
--- NOTE | 2024-04-15 12:07 | P.PN ---
Subjective Progress Note Date: 04/15/24 At todays visit pt is reporting significant improvement in hip pain. Breathing labored, SPO2 93% on 13L high flow oxygen Objective - Vital Signs Vital signs: Vital Signs Temp 98.3 F 04/15/24 07:21 Pulse 92 04/15/24 09:31 Resp 20 04/15/24 07:21 BP 108/63 04/15/24 07:21 Pulse Ox 93 L 04/15/24 07:21 FiO2 Intake & Output 04/14/24 04/15/24 04/15/24 18:59 06:59 18:59 Output Total 550 950 Balance -550 -950 Output: Urine 550 950 Other: Voiding Method External Catheter External Catheter External Catheter # Bowel Movements 1 - Constitutional General appearance: Present: average body habitus, no acute distress - EENT Eyes: Present: anicteric sclerae, EOMI ENT: Present: hearing grossly normal - Respiratory Details: breathing is even and unlabored, fine crackles bilateral bases - Cardiovascular Details: skin warm and dry - Integumentary Integumentary: Absent: cyanotic - Psychiatric Psychiatric: Present: A&O x's 3 - Labs CBC & Chem 7: 04/13/24 14:09 04/13/24 14:09 Assessment and Plan (1) Hypoxia Current Visit: Yes Status: Acute Priority: High Code(s): R09.02 - HYPOXEMIA SNOMED Code(s): 059441494 (2) Intractable pain Current Visit: Yes Status: Acute Priority: High Code(s): R52 - PAIN, UNSPECIFIED SNOMED Code(s): 20188657 (3) Adenocarcinoma, lung Current Visit: Yes Status: Chronic Priority: Medium Code(s): C34.90 - MALIGNANT NEOPLASM OF UNSP PART OF UNSP BRONCHUS OR LUNG SNOMED Code(s): 828494878 Plan: #Left hip pain -Progressive over the past week and was worse with weightbearing and relieved with rest -X-ray of the left hip reveals no acute fracture -Has had progressive improvement in pain since starting transdermal fentanyl patch at 50 mcg -Differential diagnosis includes pathologic fracture, metastasis to the bone, or osteonecrosis given steroid use -CT of the hip with and without contrast ordered. Scan revealed no evidence of fracture. And no evidence for suspicious lytic or sclerotic lesion. -Pain well controlled on current regimen #Metastatic adenocarcinoma of the lung -Progressed on first-line carboplatin/Alimta/Keytruda in [place] -Has been on adagrasib (KRAS G12C inhibitor) since March 2023 and had significant response to treatment -Most recent staging CT scans performed on 02/13/2024 at [facility] on noted metastasis at the L3 vertebral body and has now completed a total of 5 fractions of radiation therapy -He did have hospitalization on 03/25/2024 due to acute hypoxic respiratory failure of unclear etiology (infectious versus pneumonitis secondary to adagrasib) and has remained off of treatment since then and has been on slow steroid taper -His at bedside noted concern being off of treatment with concern for disease progression -He is currently scheduled to have repeat staging CT scans at the end of May 2024. Depending on the results of the CT of the hip above, these could be performed earlier and than this -Currently, he notes not being interested in hospice at this time. Given the co ncern for pneumonitis on adagrasib, sotorasib could be considered, which is also a KRAS G12C inhibitor -Will plan for repeat CT CAP in the next 1-2 weeks, and subsequent f/u to discuss results, goals of care, and treatment options attests:I have seen and examined pt, performed H&P, developed impression and plan of care. Discussed with dictator. Agree with documentation, dictated as a scribe.
--- NOTE | 2024-04-15 12:56 | P.CNPUL ---
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 He was having most of his treatments in [facility]. He had been on Krazati for approximately 1 y ear. He developed increasing shortness of breath and hypoxemia and was discharged to home from here September 27, 2023 on 10 L of high flow oxygen. His chest x-rays and scans revealed possible pneumonia, pneumonitis and or progressive ILD. His Krazati had been placed on hold. He presented here again to the emergency room yesterday 04/14/2024 mainly with complaints of low back and hip pain. X-ray of the left hip and pelvis revealed no destructive bone lesions. No acute fracture or dislocation. CT scan of the hip revealed no evidence of fracture. No evidence of subsidence that shows lytic or sclerotic lesions. Chest x-ray does reveal worsening multifocal airspace opacities. White count 11.6. Hemoglobin 14.3. Platelets 209. Sodium 134. Potassium 4.3. Bicarb 22. BUN 42. Creatinine 0.75. Glucose 80. He is seen today in consultation on the regular medical floor. He is currently sitting up at the bedside. Awake and alert. He is requiring 13 L high flow nasal cannula to main tain O2 saturation in the high 80s and low 90s. He has been initiated on DuoNeb inhalations, Symbicort, prednisone. Receiving fentanyl patches, morphine and oxycodone for pain control. Review of Systems REVIEW OF SYSTEMS: CONSTITUTIONAL: Denies any recent significant weight loss or weight gain. EYES: Denies change in vision. EARS, NOSE, MOUTH, THROAT: Denies headaches, denies sore throat. CARDIOVASCULAR: Denies chest pain, palpitations or syncopal episodes. RESPIRATORY: Positive for shortness of breath, no cough, congestion or hemoptysis. GASTROINTESTINAL: Denies change in appetite, denies abdominal pain GENITOURINARY: Denies hematuria, denies infections. MUSKULOSKELETAL: Positive for low back and hip pain. INTEGUMENTARY: Denies rash, denies eczema. NEUROLOGICAL: Denies recent memory loss, no recent seizure activity. PSYCHIATRIC: Denies anxiety, denies depression. HEMATOLOGIC/LYMPHATIC: Denies anemia, denies enlarged lymph nodes. Past Medical History Past Medical History: Cancer Additional Past Medical History / Comment(s): lung ca with mets to bone. skin Ca on face and leg History of Any Multi-Drug Resistant Organisms: None Reported Past Surgical History: No Surgical Hx Reported Past Anesthesia/Blood Transfusion Reactions: No Reported Reaction Past Psychological History: No Psychological Hx Reported Smoking Status: Former smoker Past Alcohol Use History: None Reported Past Drug Use History: None Reported - Past Family History Father Family Medical History: Congestive Heart Failure (CHF), COPD, Prostate Disorder Additional Family Medical History / Comment(s): Prostate CA Mother Family Medical History: Cancer Additional Family Medical History / Comment(s): breast Ca Medications and Allergies Home Medications Medication Instructions Recorded Confirmed Type Adagrasib [Krazati] 600 mg PO BID 03/24/24 04/13/24 History Fluticasone/Umeclidin/Vilanter 1 puff INHALATION RT-DAILY 03/24/24 04/13/24 History [Trelegy Ellipta 100-62.5-25] Folic Acid 1 mg PO DAILY 03/24/24 04/13/24 History Gabapentin [Neurontin] 300 mg PO TID 03/24/24 04/13/24 History Megestrol Acetate 625mg/5ml 625 mg PO DAILY 03/24/24 04/13/24 History Suspension Metoclopramide [Reglan] 5 mg PO TID 03/24/24 04/13/24 History Midodrine HCl [ProAmantine] 5 mg PO TID 03/24/24 04/13/24 History Morphine Sulfate ER [Ms Contin] 30 mg PO Q12HR 03/24/24 04/13/24 History Pantoprazole Sodium [Protonix] 40 mg PO DAILY 03/24/24 04/13/24 History Sennosides [Senokot] 17.2 mg PO BID 03/24/24 04/13/24 History Vit C/E/Zn/Coppr/Lutein/Zeaxan 1 cap PO DAILY 03/24/24 04/13/24 History [Preservision Areds 2 Softgel] oxyCODONE HCL [OxyIR] 5 mg PO Q6H PRN 03/24/24 04/13/24 History polyethylene glycoL 3350 [Miralax] 17 gm PO DAILY PRN 03/24/24 04/13/24 History Acetaminophen Tab [Tylenol] 1,000 mg PO Q6HR PRN tab 03/27/24 04/13/24 Rx Ipratropium-Albuterol Nebulize 3 ml INHALATION RT-QID #120 each 03/27/24 04/13/24 Rx [Duoneb 0.5 mg-3 mg/3 ml Soln] Ipratropium-Albuterol Nebulize 3 ml INHALATION RT-Q4H PRN 04/13/24 04/13/24 History [Duoneb 0.5 mg-3 mg/3 ml Soln] predniSONE See Taper PO DIRECTED 04/13/24 04/13/24 History Allergies Allergy/AdvReac Type Severity Reaction Status Date / Time atorvastatin [From Lipitor] Allergy Rapid Verified 04/13/24 13:39 Heart Rate Physical Exam Vitals: Vital Signs Temp Pulse Pulse Resp BP BP Pulse Ox 04/15/24 12:27 92/54 04/15/24 12:03 98 F 96 18 73/50 90 L 04/15/24 09:31 92 04/15/24 09:13 86 04/15/24 07:21 98.3 F 97 20 108/63 93 L 04/15/24 01:13 99.1 F 75 18 105/50 80 L 04/14/24 21:00 18 04/14/24 20:48 97 17 104/78 86 L 04/14/24 20:24 82 04/14/24 20:04 83 04/14/24 19:01 98.1 F 90 17 96/50 82 L 04/14/24 16:44 96 04/14/24 16:38 90 L 04/14/24 16:35 98 04/14/24 14:41 98.1 F 86 15 93/54 90 L Intake and Output 04/14/24 04/15/24 04/15/24 22:59 06:59 14:59 Output Total 550 950 150 Balance -550 -950 -150 Output: Urine 550 950 150 Other: Voiding Method External Catheter External Catheter # Bowel Movements 1 GENERAL EXAM: Alert, pleasant, cachectic, frail 74-year-old male, on 13 L high flow nasal cannula, fairly comfortable in no apparent distress. HEAD: Normocephalic. EYES: Normal reaction of pupils, equal size. NOSE: Clear with pink turbinates. THROAT: No erythema or exudates. NECK: No masses, no JVD. CHEST: No chest wall deformity. LUNGS: Equal air entry with bilateral scattered rhonchi. CVS: S1 and S2 normal with no audible murmur, regular rhythm. ABDOMEN: No hepatosplenomegaly, normal bowel sounds, no guarding or rigidity. SPINE: No scoliosis or deformity SKIN: No rashes CENTRAL NERVOUS SYSTEM: No focal deficits, tone is normal in all 4 extremities. EXTREMITIES: There is no peripheral edema. No clubbing, no cyanosis. Peripheral pulses are intact. Results - Laboratory Findings CBC and BMP: 04/13/24 14:09 04/13/24 14:09 Abnormal lab findings: Abnormal Labs 04/13/24 04/13/24 14:09 14:09 WBC 11.6 H Neutrophils # 9.3 H Sodium 134 L Chloride 108 H BUN 42 H - Diagnostic Findings Chest x-ray: image reviewed Assessment and Plan Assessment: Acute low back and hip pain. X-rays and CT scan revealed no evidence of fracture or bony metastasis to the left hip Acute on chronic hypoxic respiratory failure secondary to underlying lung cancer, possible pneumonia, progressive ILD. There is worsening airspace consolidation changes on the background of interstitial lung disease compared to 03/27/2024. There is a partially visualized osseous destructive changes do extend to the left psoas muscle as seen previously. 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 He has been on Krazati for approximately 1 year. Mainly being treated in [facility] History of COPD, maintained on Trelegy and DuoNeb inhalations History of chronic tobacco dependence Plan: The patient was seen and evaluated Imaging, labs and medications reviewed Currently on 13 L high flow nasal cannula Titrate the FiO2 as tolerated Would need a lung biopsy to determine the true cause of hypoxemia Patient and his are adamant not to be intubated Bronchoscopy with biopsies could not be performed without intubation and probable mechanical ventilation afterwards We will continue to follow and make further recommendations based on his clinical status I have personally seen and examined the patient, performed the documentation and the assessment and plan as written. Number of minutes spent on the visit: 20.
[2024-04-15 15:33] VITALS: BMI 18.3
[2024-04-16 07:48] VITALS: BP 115/70; RESP 19; TEMP 97.5
[2024-04-16 08:02] VITALS: PULSE 78
--- NOTE | 2024-04-16 12:26 | P.PN ---
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 He was having most of his treatments in [facility] He had been on Krazati for approximately 1 year. He developed increasing shortness of breath and hypoxemia and was discharged to home from here September 27, 2023 on 10 L of high flow oxygen. His chest x-rays and scans revealed possible pneumonia, pneumonitis and or progressive ILD. His Krazati had been placed on hold. He presented here again to the emergency room yesterday 04/14/2024 mainly with complaints of low back and hip pain. X-ray of the left hip and pelvis revealed no destructive bone lesions. No acute fracture or dislocation. CT scan of the hip revealed no evidence of fracture. No evidence of subsidence that shows lytic or sclerotic lesions. Chest x-ray does reveal worsening multifocal airspace opacities. White count 11.6. Hemoglobin 14.3. Platelets 209. Sodium 134. Potassium 4.3. Bicarb 22. BUN 42. Creatinine 0.75. Glucose 80. He is seen today in consultation on the regular medical floor. He is currently sitting up at the bedside. Awake and alert. He is requiring 13 L high flow nasal cannula to maintain O2 saturation in the high 80s and low 90s. He has been initiated on DuoNeb inhalations, Symbicort, prednisone. Receiving fentanyl patches, morphine and oxycodone for pain control. The patient is seen today April 16, 2024 in follow-up on the regular medical floor. He is currently sitting up at the bedside. Awake and alert in no acute distress. He is maintaining O2 saturations in the high 80s low 90s on 11 L high flow nasal cannula. He has been afebrile. Hemodynamically stable. No new labs today. He is continued on DuoNeb inhalations Symbicort, prednisone. Pain is better controlled. Objective - Vital Signs Vital signs: Vital Signs Temp 97.5 F L 04/16/24 07:48 Pulse 78 04/16/24 08:02 Resp 19 04/16/24 07:48 BP 115/70 04/16/24 07:48 Pulse Ox 91 L 04/16/24 08:56 FiO2 Intake & Output 04/15/24 04/16/24 04/16/24 18:59 06:59 18:59 Intake Total 120 120 Output Total 300 950 300 Balance -300 -830 -180 Weight 61.235 kg Intake: Oral 120 120 Output: Urine 300 950 300 Other: Voiding Method External Catheter Urinal Urinal # Bowel Movements 1 1 - Exam GENERAL EXAM: Alert, cachectic, frail 74-year-old male, on 11 L high flow nasal cannula, fairly comfortable in no apparent distress. HEAD: Normocephalic. EYES: Normal reaction of pupils, equal size. NOSE: Clear with pink turbinates. THROAT: No erythema or exudates. NECK: No masses, no JVD. CHEST: No chest wall deformity. LUNGS: Equal air entry with bilateral scattered rhonchi. CVS: S1 and S2 normal with no audible murmur, regular rhythm. ABDOMEN: No hepatosplenomegaly, normal bowel sounds, no guarding or rigidity. SPINE: No scoliosis or deformity SKIN: No rashes CENTRAL NERVOUS SYSTEM: No focal deficits, tone is normal in all 4 extremities. EXTREMITIES: There is no peripheral edema. No clubbing, no cyanosis. Pe ripheral pulses are intact. - Labs CBC & Chem 7: 04/13/24 14:09 04/13/24 14:09 Assessment and Plan Assessment: Acute low back and hip pain. X-rays and CT scan revealed no evidence of fracture or bony metastasis to the left hip Acute on chronic hypoxic respiratory failure secondary to underlying lung cancer, possible pneumonia, progressive ILD. There is worsening airspace consolidation changes on the background of interstitial lung disease compared to 03/27/2024. There is a partially visualized osseous destructive changes do extend to the left psoas muscle as seen previously. 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 He has been on Krazati for approximately 1 year. Mainly being treated in [facility] ([facility] History of COPD, maintained on Trelegy and DuoNeb inhalations History of chronic tobacco dependence Plan: The patient was seen and evaluated Medications reviewed Currently on 11 L high flow nasal cannula Titrate the FiO2 as tolerated He does have home oxygen, 2 tanks to supply needed FiO2 Pain is better controlled Hoping to go home today Plan is for home with home care This patient was seen independently by the pulmonary nurse practitioner add ressing pulmonary issues I have personally seen and examined the patient, performed the documentation and the assessment and plan as written. Number of minutes spent on the visit: 24.
--- NOTE | 2024-04-16 13:39 | P.DS ---
Providers Date of admission: 04/13/24 12:56 Expected date of discharge: 04/15/24 Attending physician: Peyman Sánchez Consults: 04/13/24 12:56 Consult Physician Routine Consulting Provider: Bi Avila Consult Reason/Comments: oncological care Do you want consulting provider notified?: Yes 04/15/24 09:47 Consult Physician Routine Consulting Provider: Judy Benitez Consult Reason/Comments: hypoxia,pnemonitis?, lung CA Do you want consulting provider notified?: Yes Primary care physician: [facility] Course: Final Diagnoses: (1) acute on chronic hypoxia Current Visit: Yes Status: Acute Code(s): R09.02 - HYPOXEMIA SNOMED Code(s): 904661182 (2) Intractable pain Current Visit: Yes Status: Acute Code(s): R52 - PAIN, UNSPECIFIED SNOMED Code(s): 69254685 (3) Adenocarcinoma, lung Current Visit: Yes Status: Chronic Priority: Medium Code(s): C34.90 - MALIGNANT NEOPLASM OF UNSP PART OF UNSP BRONCHUS OR LUNG SNOMED Code(s): 330715816 (4) Acute exacerbation of chronic obstructive pulmonary disease Current Visit: No Status: Acute Priority: High Code(s): J44.1 - CHRONIC OBSTRUCTIVE PULMONARY DISEASE W (ACUTE) EXACERBATION SNOMED Code(s): 535658340 (5) Acute respiratory failure Current Visit: No Status: Acute Priority: High Code(s): J96.00 - ACUTE RESPIRATORY FAILURE, UNSP W HYPOXIA OR HYPERCAPNIA SNOMED Code(s): 86528642 Hospital coursethis patient is a 74-year-old patient well-known to my practice who has known metastatic lung cancer with bony metastases to the lumbar region, who presents to the hospital with hypoxia which is chronic and severe low back pain PT was basically admitted for pain management, a initial 25 g fentanyl patch was applied yesterday and pain was improved but not adequate this morning a 50 g patch was applied the 25 g patch was removed and pain was improved significantly patient was able to breathe better and his sats on 12 L nasal cannula were in the low 90s. Discussed CODE STATUS with patient explained to him that he was terminally ill . Patient agreed to no intubation and no CPR, he wished for medical resuscitative of processes to be kept in place we agreed to that. Continues on nebulized bronchodilators, prednisone, Symbicort ,currently maintaining O2 sats in the 80s to 90s 11-13 L high flow nasal cannula. Vital signs stable. afebrile. Reports pain much better controlled with the addition of the fentanyl patch currently rating his pain at a 1 out of 10. Evaluated and cleared by pulmonary. Patient will be discharged home today with home care with guarded prognosis. Hospice previously discussed, patient and declined. The impression and plan of care has been dictated as directed. : I performed a history and examination of this patient, discussed the same with the dictator. I agree with the dictator's note ,documented as a scribe. Any additional findings or plans will be noted. Patient Condition at Discharge: Poor Plan - Discharge Summary Discharge Rx Participant: No New Discharge Prescriptions: New fentaNYL 50MCG/HR PATCH [Duragesic 50MCG/HR] 1 patch TRANSDERM Q72H #1 patch Continue Metoclopramide [Reglan] 5 mg PO TID Megestrol Acetate 625mg/5ml Suspension 625 mg PO DAILY Sennosides [Senokot] 17.2 mg PO BID polyethylene glycoL 3350 [Miralax] 17 gm PO DAILY PRN PRN Reason: Constipation Pantoprazole Sodium [Protonix] 40 mg PO DAILY Midodrine HCl [ProAmantine] 5 mg PO TID Ipratropium-Albuterol Nebulize [Duoneb 0.5 mg-3 mg/3 ml Soln] 3 ml INHALATION RT-Q4H PRN PRN Reason: Shortness Of Breath predniSONE See Taper PO DIRECTED oxyCODONE HCL [OxyIR] 5 mg PO Q6H PRN PRN Reason: Pain Vit C/E/Zn/Coppr/Lutein/Zeaxan [Preservision Areds 2 Softgel] 1 cap PO DAILY Morphine Sulfate ER [Ms Contin] 30 mg PO Q12HR Gabapentin [Neurontin] 300 mg PO TID Folic Acid 1 mg PO DAILY Adagrasib [Krazati] 600 mg PO BID Fluticasone/Umeclidin/Vilanter [Trelegy Ellipta 100-62.5-25] 1 puff INHALATION RT-DAILY Ipratropium-Albuterol Nebulize [Duoneb 0.5 mg-3 mg/3 ml Soln] 3 ml INHALATION RT-QID #120 each Acetaminophen Tab [Tylenol] 1,000 mg PO Q6HR PRN tab PRN Reason: Fever And/ Or Pain Discharge Medication List Adagrasib [Krazati] 600 mg PO BID 03/24/24 [History] Fluticasone/Umeclidin/Vilanter [Trelegy Ellipta 100-62.5-25] 1 puff INHALATION RT-DAILY 03/24/24 [History] Folic Acid 1 mg PO DAILY 03/24/24 [History] Gabapentin [Neurontin] 300 mg PO TID 03/24/24 [History] Megestrol Acetate 625mg/5ml Suspension 625 mg PO DAILY 03/24/24 [History] Metoclopramide [Reglan] 5 mg PO TID 03/24/24 [History] Midodrine HCl [ProAmantine] 5 mg PO TID 03/24/24 [History] Morphine Sulfate ER [Ms Contin] 30 mg PO Q12HR 03/24/24 [History] Pantoprazole Sodium [Protonix] 40 mg PO DAILY 03/24/24 [History] Sennosides [Senokot] 17.2 mg PO BID 03/24/24 [History] Vit C/E/Zn/Coppr/Lutein/Zeaxan [Preservision Areds 2 Softgel] 1 cap PO DAILY 03/24/24 [History] oxyCODONE HCL [OxyIR] 5 mg PO Q6H PRN 03/24/24 [History] polyethylene glycoL 3350 [Miralax] 17 gm PO DAILY PRN 03/24/24 [History] Acetaminophen Tab [Tylenol] 1,000 mg PO Q6HR PRN tab 03/27/24 [Rx] Ipratropium-Albuterol Nebulize [Duoneb 0.5 mg-3 mg/3 ml Soln] 3 ml INHALATION RT-QID #120 each 03/27/24 [Rx] Ipratropium-Albuterol Nebulize [Duoneb 0.5 mg-3 mg/3 ml Soln] 3 ml INHALATION RT-Q4H PRN 04/13/24 [History] predniSONE See Taper PO DIRECTED 04/13/24 [History] fentaNYL 50MCG/HR PATCH [Duragesic 50MCG/HR] 1 patch TRANSDERM Q72H #1 patch 04/15/24 [Rx] Follow up Appointment(s)/Referral(s): [facility], [NON-STAFF] - As Needed Peyman Sánchez Jr, [Primary Care Provider] - 04/18/24 2:30 pm Activity/Diet/Wound Care/Special Instructions: ATTN Dr. Herrera -- DOES PATIENT NEED TO HAVE A PRESCRIPTION FOR PREDNISONE FOR HOME??? Please confirm follow-up with oncology, prior to DC [facility] confirms patient has concentrators at home that can meet home O2 needs at 13 L as per social work. Home with [facility] Discharge/Stand Alone Forms: Who Do I Call?, Community Resources, Help In The Home Discharge Disposition: HOME WITH HOME HEALTH SERVICES
--- NOTE | 2024-04-16 19:19 | P.PN ---
Subjective Progress Note Date: 04/16/24 Principal diagnosis: Intractable pain, Objective - Vital Signs Vital signs: Vital Signs Temp 97.5 F L 04/16/24 07:48 Pulse 78 04/16/24 08:02 Resp 19 04/16/24 07:48 BP 115/70 04/16/24 07:48 Pulse Ox 91 L 04/16/24 08:56 FiO2 Intake & Output 04/16/24 04/16/24 04/17/24 06:59 18:59 06:59 Intake Total 120 120 Output Total 950 300 Balance -830 -180 Intake: Oral 120 120 Output: Urine 950 300 Other: Voiding Method Urinal Urinal # Bowel Movements 1 - Labs CBC & Chem 7: 04/13/24 14:09 04/13/24 14:09 Assessment and Plan (1) Intractable pain Status: Acute Priority: High Code(s): R52 - PAIN, UNSPECIFIED SNOMED Code(s): 06064532 (2) Adenocarcinoma, lung Status: Chronic Priority: Medium Code(s): C34.90 - MALIGNANT NEOPLASM OF UNSP PART OF UNSP BRONCHUS OR LUNG SNOMED Code(s): 489575833 Plan: Intractable left hip pain -Progressive over the past week -X-ray of the left hip reveals no acute fracture -Pain improved on fentanyl. -Differential diagnosis includes pathologic fracture, metastasis to the bone, or osteonecrosis given steroid use -CT of the hip 04/14/2024 the impression is there is no evidence of fracture, no evidence for lytic or sclerotic lesion, mild left hip osteoarthritis. At this time continue with pain management per primary care. Metastatic adenocarcinoma of the lung -Progressed on first-line carboplatin/Alimta/Keytruda in [place] -Has been on adagrasib (KRAS G12C inhibitor) since March 2023 and had significant response to treatment -Most recent staging CT scans performed on 02/13/2024 at [facility] on noted metastasis at the L3 vertebral body. He had 5 fractions of radiation therapy -He did have hospitalization on 03/25/2024 due to acute hypoxic respiratory failure of unclear etiology (infectious versus pneumonitis secondary to adag rasib) and has remained off of treatment since then and has been on slow steroid taper. -CT CAP moved to 2 weeks from now. F/U sched about 1 week after Discussed case with nursing as reports significant confusion and understanding patient's medications. Did recommend continuation of the steroid taper at this time.
[2024-04-17] MEDS ORDERED: predniSONE 10 MG TAB PO ONE (09:00)
== END 2024-04-16 11:49 | disposition home health service (06) ==
LOC: EC 09:15 → 5NMEDONC 12:56
PROVIDERS: ADMIT Family Medicine; ATTEND Family Medicine
DX: M25.552 Pain in left hip (principal); M54.50 Low back pain, unspecified; J96.21 Acute and chronic respiratory failure with hypoxia; C34.90 Malignant neoplasm of unspecified part of unspecified bronchus or lung; C79.51 Secondary malignant neoplasm of bone; J44.1 Chronic obstructive pulmonary disease with (acute) exacerbation; Z85.828 Personal history of other malignant neoplasm of skin; Z87.891 Personal history of nicotine dependence; Z79.51 Long term (current) use of inhaled steroids; Z79.899 Other long term (current) drug therapy
CPT/HCPCS: 96361 ×2; 96374; 96375; 96372; 99285; 94640 ×8; 94760 ×2; 80048; 85025; 73502; 71045; 73702; G0378 ×4; J2405; J1170 ×2; S0179 ×3; J7512 ×3; Q9967